=== PATIENT | male | born 1980 | race Caucasian/White ===

== ENCOUNTER 2021-11-23 16:10 | Inpatient (IN) | payer OTHER ==
[2021-11-23] MEDS ORDERED: SODIUM CHLORIDE 0.9% 500 ML INFUS.BAG IV ONE (17:06)
[2021-11-23 17:54] LABS: BASO % 0.6 % (0-2.0); EOS % 0.3 % (0-4.5); HEMATOCRIT 37.6 % (35.4-49); HEMOGLOBIN 13.3 GM/dL (11.7-16.9); LYMPH % 8.2 % (8-40); MCH 32.9 pg (25.7-33.7); MCHC 35.3 g/dl (32.0-35.9); MEAN CELL VOLUME 93.3 fl (80-96); MEAN PLT VOLUME 8.3 fl (7.5-11.1); MONO % 11.4 % (3.8-10.2); NEUT % 79.5 % (42.8-82.8); PLATELET COUNT 259 10^3/uL (134-434); RBC 4.03 M/mm3 (4.00-5.60); RDW 11.9 % (11.9-15.9); WHITE BLOOD COUNT 11.6 K/mm3 (4.0-10.0)
[2021-11-23 18:01] LABS: INR 1.05 (0.83-1.09); PROTHROMBIN TIME (PATIENT) 12.1 SEC (9.7-13.0)
[2021-11-23 18:04] LABS: ACTIVATED PTT 28.4 SECONDS (25.2-36.5)
[2021-11-23 18:16] LABS: BLOOD UREA NITROGEN 10.9 mg/dL (7-18); CALCIUM 8.8 mg/dL (8.5-10.1)
[2021-11-23 18:17] LABS: ALBUMIN 3.2 g/dl (3.4-5.0)
[2021-11-23 18:19] LABS: CREATININE 0.9 mg/dL (0.55-1.3)
[2021-11-23 18:21] LABS: BILIRUBIN,TOTAL 0.9 mg/dL (0.2-1); TOT PROT 7.6 g/dl (6.4-8.2)
[2021-11-23] MEDS ORDERED: PIPERACILLIN/TAZOB 3.375 GM 3.375 GM in DEXTROSE 5%-WATER - 50 ML IVPB ONE (19:11)
[2021-11-23] MEDS ORDERED: VANCOMYCIN 1 GM in D5W (PRE-DOCKED) 1,000 MG/250 ML IVPB ONE (19:11)
[2021-11-23] MEDS ORDERED: ACETAMINOPHEN 1000 MG/100 ML BAG IVPB ONE (19:26)
[2021-11-23] MEDS ORDERED: ACETAMINOPHEN 325 MG TABLET (FP) PO PRN (19:55)
[2021-11-23] MEDS ORDERED: SODIUM CHLORIDE 1,000 ML IV SCH (20:00)
[2021-11-23] MEDS ORDERED: VANCOMYCIN/WATER 1,250 MG/250 ML BAG IVPB SCH (20:15)
[2021-11-23] MEDS ORDERED: ACETAMINOPHEN INJECTION 100 ML IVPB ONE (20:41)
[2021-11-23] MEDS ORDERED: PIPERACILLIN/TAZOB 3.375 GM 3.375 GM/50 ML BAG IVPB ONE (22:04)
[2021-11-23] MEDS ORDERED: VANCOMYCIN 1 GM/200 ML PREMIX BAG IVPB ONE (23:30)
[2021-11-23] MEDS: INSULIN SLIDING SCALE (NOVOLOG) 1 VIAL SQ SCH (23:44)
[2021-11-24] MEDS ORDERED: SODIUM CHLORIDE 1,000 ML IV SCH ×2 (00:30→10:27)
[2021-11-24 01:42] VITALS: BMI 23.7
[2021-11-24] MEDS ORDERED: DEXTROSE 5%-WATER - 50 ML IVPB ONE ×3 (02:42→19:01)
[2021-11-24] MEDS ORDERED: PIPERACILLIN/TAZOBACTAM 3.375 GM VIAL IVPB ONE ×3 (02:42→19:01)
[2021-11-24] MEDS: PIPERACILLIN/TAZOB 3.375 GM 3.375 GM in DEXTROSE 5%-WATER - 50 ML IVPB SCH ×3 (02:46→19:04)
[2021-11-24 03:58] LABS: CALCIUM 8.4 mg/dL (8.5-10.1)
[2021-11-24 03:59] LABS: BLOOD UREA NITROGEN 10.8 mg/dL (7-18)
[2021-11-24 04:02] LABS: CREATININE 0.8 mg/dL (0.55-1.3)
[2021-11-24] MEDS ORDERED: POTASSIUM CHLORIDE TABS 20 MEQ TABLET.ER (FP) PO ONE (04:03)
[2021-11-24] MEDS: INSULIN SLIDING SCALE (NOVOLOG) 1 VIAL SQ SCH ×5 (07:00→21:36)
[2021-11-24 09:17] LABS: BASO % 0.3 % (0-2.0); EOS % 0.9 % (0-4.5); HEMATOCRIT 34.5 % (35.4-49); LYMPH % 8.2 % (8-40); MCH 32.6 pg (25.7-33.7); MCHC 34.9 g/dl (32.0-35.9); MEAN CELL VOLUME 93.2 fl (80-96); MEAN PLT VOLUME 8.4 fl (7.5-11.1); MONO % 12.1 % (3.8-10.2); NEUT % 78.5 % (42.8-82.8); PLATELET COUNT 258 10^3/uL (134-434); RDW 11.8 % (11.9-15.9); WHITE BLOOD COUNT 10.1 K/mm3 (4.0-10.0)
[2021-11-24 09:26] LABS: INR 1.06 (0.83-1.09); PROTHROMBIN TIME (PATIENT) 12.2 SEC (9.7-13.0)
[2021-11-24 09:36] LABS: ALBUMIN 2.6 g/dl (3.4-5.0); BLOOD UREA NITROGEN 10.2 mg/dL (7-18); CALCIUM 8.2 mg/dL (8.5-10.1); MAGNESIUM 2.2 mg/dL (1.8-2.4)
[2021-11-24 09:39] LABS: CREATININE 0.7 mg/dL (0.55-1.3); PHOSPHOROUS 2.2 mg/dL (2.5-4.9)
[2021-11-24 09:40] LABS: BILIRUBIN,TOTAL 0.7 mg/dL (0.2-1); TOT PROT 6.5 g/dl (6.4-8.2)
[2021-11-24] MEDS ORDERED: INSULIN SLIDING SCALE (NOVOLOG) 1 VIAL SQ SCH (09:58)
[2021-11-24] MEDS ORDERED: ENOXAPARIN NA (PORCINE) 40 MG/0.4 ML DISP.SYRIN SQ SCH (10:00)
[2021-11-24 10:07] LABS: ERYTHROCYTE SEDIMENTATION RATE 92 mm/hr (0-10)
[2021-11-24] MEDS ORDERED: INSULIN (LEVEMIR) 100 UNITS/ML UNITS SQ SCH ×2 (10:23→19:37)
[2021-11-24] MEDS ORDERED: INSULIN (NOVOLOG) ASPART 100 UNITS/ML 10ML VIAL ONE (10:58)
[2021-11-24] MEDS ORDERED: VANCOMYCIN/WATER 1,250 MG/250 ML BAG IVPB ONE (11:00)
[2021-11-24 11:15] LABS: EPI CELLS 8 /uL (0-25.1); HYALINE CASTS 2 /uL (0-3.1); URINE APPEARANCE CLEAR; URINE BACTERIA 12 /uL (0-1359); URINE BILIRUBIN NEGATIVE (NEGATIVE); URINE COLOR YELLOW; URINE GLUCOSE (UA) 3+ (NEGATIVE); URINE KETONE 4+ (NEGATIVE); URINE LEUK ESTERASE NEGATIVE (NEGATIVE); URINE NITRITE NEGATIVE (NEGATIVE); URINE PROTEIN 1+ (NEGATIVE); URINE RBC 22 /uL (0-23.9); URINE UROBILINOGEN 0.2 mg/dL (0.2-1.0); URINE WBC 53 /uL (0-25.8)
[2021-11-24] MEDS ORDERED: INSULIN (LEVEMIR) 100 UNITS/ML UNITS SQ ONE (18:31)
[2021-11-24] MEDS ORDERED: SODIUM PHOSPHATE - 15 MM in SODIUM CHLORIDE 250 ML IVPB ONE (18:33)
[2021-11-24 20:13] LABS: ARTERIAL BLD GAS O2 SATURATION 92.8 % (95-98); ARTERIAL BLOOD GAS BASE EXCESS -7.4 mmol/L (-2-2); ARTERIAL BLOOD GAS PO2 66.6 mmHg (80-100); ARTERIAL BLOOD GAS pH 7.357 (7.350-7.450)
[2021-11-24 20:14] LABS: ALLENS TEST POSITIVE
[2021-11-24] MEDS ORDERED: VANCOMYCIN/WATER 1250 MG 1,250 MG/250 ML BAG IVPB SCH (23:00)
[2021-11-25] MEDS ORDERED: PIPERACILLIN/TAZOBACTAM 3.375 GM VIAL IVPB ONE ×3 (01:43→17:21)
[2021-11-25] MEDS: PIPERACILLIN/TAZOB 3.375 GM 3.375 GM in DEXTROSE 5%-WATER - 50 ML IVPB SCH ×3 (02:50→17:35)
[2021-11-25] MEDS: INSULIN SLIDING SCALE (NOVOLOG) 1 VIAL SQ SCH ×4 (06:53→21:15)
[2021-11-25] MEDS ORDERED: LIDOCAINE HCL 1%, 10 MG/ML (20ML VIAL) ONE (07:34)
[2021-11-25] MEDS ORDERED: BUPIVACAINE HCL/PF 0.5% (5MG/ML) 10 ML VIAL ONE (07:35)
[2021-11-25] MEDS ORDERED: MIDAZOLAM HCL 2 MG/2 ML SINGLE DOSE VIAL ONE ×3 (07:50→08:20)
[2021-11-25] MEDS ORDERED: PROPOFOL 20 ML ONE ×3 (07:50→08:29)
[2021-11-25 08:06] LABS: BASO % 0.6 % (0-2.0); EOS % 1.5 % (0-4.5); HEMATOCRIT 35.4 % (35.4-49); HEMOGLOBIN 12.4 GM/dL (11.7-16.9); LYMPH % 11.7 % (8-40); MCH 32.4 pg (25.7-33.7); MEAN CELL VOLUME 92.4 fl (80-96); MEAN PLT VOLUME 8.4 fl (7.5-11.1); MONO % 11.4 % (3.8-10.2); NEUT % 74.8 % (42.8-82.8); PLATELET COUNT 286 10^3/uL (134-434); RBC 3.83 M/mm3 (4.00-5.60); RDW 12.1 % (11.9-15.9); WHITE BLOOD COUNT 8.4 K/mm3 (4.0-10.0)
[2021-11-25 08:18] LABS: ALBUMIN 2.6 g/dl (3.4-5.0); BLOOD UREA NITROGEN 6.8 mg/dL (7-18); CALCIUM 8.5 mg/dL (8.5-10.1); MAGNESIUM 2.2 mg/dL (1.8-2.4)
[2021-11-25 08:21] LABS: PHOSPHOROUS 2.8 mg/dL (2.5-4.9)
[2021-11-25 08:22] LABS: CREATININE 0.5 mg/dL (0.55-1.3)
[2021-11-25 08:23] LABS: BILIRUBIN,TOTAL 0.4 mg/dL (0.2-1); TOT PROT 6.4 g/dl (6.4-8.2)
[2021-11-25] MEDS ORDERED: BUPIVACAINE HCL/PF 0.5% (5 MG/ML) 30 ML VIAL IJ ONE (08:26)
[2021-11-25] MEDS ORDERED: LIDOCAINE HCL 1%, 10 MG/ML (20ML VIAL) NR ONE (08:26)
[2021-11-25] MEDS ORDERED: DEXAMETHASONE SOD PHOSPHATE 4 MG/1 ML VIAL ONE (08:38)
[2021-11-25] MEDS ORDERED: ONDANSETRON 4 MG/2 ML VIAL IVPUSH PRN ×2 (08:47→09:26)
[2021-11-25] MEDS ORDERED: oxyCODONE HCL 5 MG TABLET PO PRN (08:47)
[2021-11-25] MEDS ORDERED: LACTATED RINGERS SOLUTION 1,000 ML IV SCH ×2 (09:00→09:26)
[2021-11-25] MEDS ORDERED: SODIUM CHLORIDE 1,000 ML IV SCH (09:26)
[2021-11-25] MEDS ORDERED: ACETAMINOPHEN 325 MG TABLET (FP) PO PRN (09:26)
[2021-11-25] MEDS ORDERED: ENOXAPARIN NA (PORCINE) 40 MG/0.4 ML DISP.SYRIN SQ SCH (10:00)
[2021-11-25] MEDS ORDERED: DEXTROSE 5%-WATER - 50 ML IVPB ONE ×2 (10:29→17:21)
[2021-11-25] MEDS: ENOXAPARIN NA (PORCINE) 40 MG/0.4 ML DISP.SYRIN SQ SCH (10:39)
[2021-11-25] MEDS ORDERED: INSULIN SLIDING SCALE (NOVOLOG) 1 VIAL SQ SCH ×2 (11:00→16:30)
[2021-11-25] MEDS: VANCOMYCIN/WATER 1250 MG 1,250 MG/250 ML BAG IVPB SCH ×2 (11:18→22:47)
[2021-11-26] MEDS ORDERED: DEXTROSE 5%-WATER - 50 ML IVPB ONE ×3 (01:14→17:15)
[2021-11-26] MEDS ORDERED: PIPERACILLIN/TAZOBACTAM 3.375 GM VIAL IVPB ONE ×3 (01:14→17:14)
[2021-11-26] MEDS: PIPERACILLIN/TAZOB 3.375 GM 3.375 GM in DEXTROSE 5%-WATER - 50 ML IVPB SCH ×3 (01:27→17:51)
[2021-11-26] MEDS: INSULIN SLIDING SCALE (NOVOLOG) 1 VIAL SQ SCH ×5 (06:17→21:28)
[2021-11-26] MEDS ORDERED: INSULIN (LEVEMIR) 100 UNITS/ML UNITS SQ SCH ×3 (07:00→22:00)
[2021-11-26 08:53] LABS: BASO % 0.8 % (0-2.0); HEMATOCRIT 34.9 % (35.4-49); HEMOGLOBIN 12.3 GM/dL (11.7-16.9); LYMPH % 21.8 % (8-40); MCH 32.2 pg (25.7-33.7); MCHC 35.3 g/dl (32.0-35.9); MEAN CELL VOLUME 91.3 fl (80-96); MEAN PLT VOLUME 8.2 fl (7.5-11.1); MONO % 10.8 % (3.8-10.2); NEUT % 64.6 % (42.8-82.8); PLATELET COUNT 314 10^3/uL (134-434); RBC 3.82 M/mm3 (4.00-5.60); RDW 11.8 % (11.9-15.9); WHITE BLOOD COUNT 6.1 K/mm3 (4.0-10.0)
[2021-11-26] MEDS: ENOXAPARIN NA (PORCINE) 40 MG/0.4 ML DISP.SYRIN SQ SCH (09:14)
[2021-11-26 09:24] LABS: CALCIUM 8.6 mg/dL (8.5-10.1)
[2021-11-26 09:25] LABS: ALBUMIN 2.4 g/dl (3.4-5.0); BLOOD UREA NITROGEN 13.4 mg/dL (7-18); MAGNESIUM 2.2 mg/dL (1.8-2.4)
[2021-11-26 09:28] LABS: CREATININE 0.6 mg/dL (0.55-1.3); PHOSPHOROUS 2.6 mg/dL (2.5-4.9)
[2021-11-26 09:29] LABS: BILIRUBIN,TOTAL 0.2 mg/dL (0.2-1); TOT PROT 6.2 g/dl (6.4-8.2)
[2021-11-26] MEDS ORDERED: INSULIN (LEVEMIR) 100 UNITS/ML UNITS SQ ONE ×2 (10:00)
[2021-11-26] MEDS: SODIUM CHLORIDE 1,000 ML IV SCH (11:06)
[2021-11-26] MEDS: VANCOMYCIN/WATER 1250 MG 1,250 MG/250 ML BAG IVPB SCH (14:02)
[2021-11-26] MEDS ORDERED: INSULIN SLIDING SCALE (NOVOLOG) 1 VIAL SQ SCH (16:58)
[2021-11-26] MEDS ORDERED: INSULIN (NOVOLOG) ASPART 100 UNITS/ML 10ML VIAL ONE (17:03)
[2021-11-26] MEDS: VANCOMYCIN PREMIX 1.5 GM 1,500 MG/300 ML BAG IVPB SCH (21:00)
[2021-11-26] MEDS: INSULIN (LEVEMIR) 100 UNITS/ML UNITS SQ SCH (21:29)
[2021-11-27] MEDS ORDERED: DEXTROSE 5%-WATER - 50 ML IVPB ONE ×3 (01:00→16:50)
[2021-11-27] MEDS ORDERED: PIPERACILLIN/TAZOBACTAM 3.375 GM VIAL IVPB ONE ×3 (01:00→16:50)
[2021-11-27] MEDS: PIPERACILLIN/TAZOB 3.375 GM 3.375 GM in DEXTROSE 5%-WATER - 50 ML IVPB SCH ×3 (01:00→17:03)
[2021-11-27] MEDS: INSULIN (LEVEMIR) 100 UNITS/ML UNITS SQ SCH ×2 (06:23→21:29)
[2021-11-27] MEDS: INSULIN SLIDING SCALE (NOVOLOG) 1 VIAL SQ SCH ×4 (06:25→21:28)
[2021-11-27] MEDS: VANCOMYCIN PREMIX 1.5 GM 1,500 MG/300 ML BAG IVPB SCH ×2 (08:58→21:00)
[2021-11-27] MEDS: ENOXAPARIN NA (PORCINE) 40 MG/0.4 ML DISP.SYRIN SQ SCH (10:39)
[2021-11-27] MEDS: SODIUM CHLORIDE 1,000 ML IV SCH (10:44)
[2021-11-27 11:32] LABS: BASO % 0.6 % (0-2.0); EOS % 2.9 % (0-4.5); HEMATOCRIT 34.7 % (35.4-49); HEMOGLOBIN 12.4 GM/dL (11.7-16.9); LYMPH % 16.3 % (8-40); MCH 32.8 pg (25.7-33.7); MCHC 35.6 g/dl (32.0-35.9); MEAN CELL VOLUME 92.1 fl (80-96); MEAN PLT VOLUME 7.8 fl (7.5-11.1); MONO % 11.9 % (3.8-10.2); NEUT % 68.3 % (42.8-82.8); PLATELET COUNT 337 10^3/uL (134-434); RBC 3.77 M/mm3 (4.00-5.60); RDW 12.2 % (11.9-15.9); WHITE BLOOD COUNT 5.5 K/mm3 (4.0-10.0)
[2021-11-27 11:42] LABS: BLOOD UREA NITROGEN 12.3 mg/dL (7-18)
[2021-11-27 11:43] LABS: CALCIUM 8.8 mg/dL (8.5-10.1)
[2021-11-27 11:44] LABS: MAGNESIUM 2.2 mg/dL (1.8-2.4)
[2021-11-27 11:45] LABS: PHOSPHOROUS 4.5 mg/dL (2.5-4.9)
[2021-11-27 11:46] LABS: CREATININE 0.6 mg/dL (0.55-1.3)
[2021-11-27] MEDS: oxyCODONE HCL 5 MG TABLET PO PRN (14:49)
[2021-11-28] MEDS ORDERED: PIPERACILLIN/TAZOBACTAM 3.375 GM VIAL IVPB ONE ×2 (00:24→08:51)
[2021-11-28] MEDS ORDERED: DEXTROSE 5%-WATER - 50 ML IVPB ONE ×2 (00:25→08:51)
[2021-11-28] MEDS: PIPERACILLIN/TAZOB 3.375 GM 3.375 GM in DEXTROSE 5%-WATER - 50 ML IVPB SCH ×2 (01:00→10:50)
[2021-11-28] MEDS: INSULIN (LEVEMIR) 100 UNITS/ML UNITS SQ SCH ×2 (06:08→21:15)
[2021-11-28] MEDS: INSULIN SLIDING SCALE (NOVOLOG) 1 VIAL SQ SCH ×4 (06:08→21:14)
[2021-11-28 07:31] LABS: BASO % 0.5 % (0-2.0); EOS % 2.4 % (0-4.5); HEMATOCRIT 34.1 % (35.4-49); HEMOGLOBIN 11.7 GM/dL (11.7-16.9); LYMPH % 12.9 % (8-40); MCH 31.7 pg (25.7-33.7); MCHC 34.2 g/dl (32.0-35.9); MEAN CELL VOLUME 92.8 fl (80-96); MEAN PLT VOLUME 7.6 fl (7.5-11.1); MONO % 12.5 % (3.8-10.2); NEUT % 71.7 % (42.8-82.8); PLATELET COUNT 321 10^3/uL (134-434); RBC 3.68 M/mm3 (4.00-5.60); RDW 11.9 % (11.9-15.9); WHITE BLOOD COUNT 5.8 K/mm3 (4.0-10.0)
[2021-11-28 07:52] LABS: CALCIUM 8.4 mg/dL (8.5-10.1)
[2021-11-28 07:53] LABS: BLOOD UREA NITROGEN 11.4 mg/dL (7-18); MAGNESIUM 2.2 mg/dL (1.8-2.4)
[2021-11-28 07:56] LABS: CREATININE 0.6 mg/dL (0.55-1.3); PHOSPHOROUS 3.4 mg/dL (2.5-4.9)
[2021-11-28] MEDS: VANCOMYCIN PREMIX 1.5 GM 1,500 MG/300 ML BAG IVPB SCH (08:54)
[2021-11-28] MEDS: ENOXAPARIN NA (PORCINE) 40 MG/0.4 ML DISP.SYRIN SQ SCH (09:00)
[2021-11-28] MEDS: oxyCODONE HCL 5 MG TABLET PO PRN (15:31)
[2021-11-28] MEDS ORDERED: DEXTROSE 5%-WATER 100 ML IVPB ONE (17:12)
[2021-11-28] MEDS ORDERED: PIPERACILLIN/TAZOBACTAM 4.5 GM VIAL IVPB ONE (17:12)
[2021-11-28] MEDS: PIPERACILLIN/TAZOB 4.5 GM 4.5 GM in DEXTROSE 5%-WATER 100 ML IVPB SCH (17:13)
[2021-11-28] MEDS ORDERED: INSULIN (NOVOLOG) ASPART 100 UNITS/ML 10ML VIAL ONE (21:03)
[2021-11-28] MEDS: VANCOMYCIN 2,000 MG in DEXTROSE 5%-WATER - 500 ML IVPB SCH (21:22)
[2021-11-29] MEDS ORDERED: DEXTROSE 5%-WATER 100 ML IVPB ONE ×3 (01:00→16:40)
[2021-11-29] MEDS ORDERED: PIPERACILLIN/TAZOBACTAM 4.5 GM VIAL IVPB ONE ×3 (01:00→16:40)
[2021-11-29] MEDS: PIPERACILLIN/TAZOB 4.5 GM 4.5 GM in DEXTROSE 5%-WATER 100 ML IVPB SCH ×3 (01:07→17:04)
[2021-11-29] MEDS: INSULIN SLIDING SCALE (NOVOLOG) 1 VIAL SQ SCH ×4 (06:00→21:30)
[2021-11-29] MEDS: INSULIN (LEVEMIR) 100 UNITS/ML UNITS SQ SCH ×2 (06:01→21:30)
[2021-11-29 09:03] LABS: BASO % 0.6 % (0-2.0); EOS % 3.3 % (0-4.5); HEMATOCRIT 35.3 % (35.4-49); HEMOGLOBIN 12.1 GM/dL (11.7-16.9); LYMPH % 17.1 % (8-40); MCH 32.2 pg (25.7-33.7); MCHC 34.3 g/dl (32.0-35.9); MEAN CELL VOLUME 93.8 fl (80-96); MEAN PLT VOLUME 7.9 fl (7.5-11.1); MONO % 18.6 % (3.8-10.2); NEUT % 60.4 % (42.8-82.8); PLATELET COUNT 328 10^3/uL (134-434); RBC 3.76 M/mm3 (4.00-5.60); WHITE BLOOD COUNT 6.6 K/mm3 (4.0-10.0)
[2021-11-29] MEDS: ENOXAPARIN NA (PORCINE) 40 MG/0.4 ML DISP.SYRIN SQ SCH (09:13)
[2021-11-29] MEDS: VANCOMYCIN 2,000 MG in DEXTROSE 5%-WATER - 500 ML IVPB SCH ×2 (09:13→20:20)
[2021-11-29 09:53] LABS: BILIRUBIN,TOTAL 0.2 mg/dL (0.2-1); TOT PROT 6.4 g/dl (6.4-8.2)
[2021-11-29 10:05] LABS: ALBUMIN 2.4 g/dl (3.4-5.0); CALCIUM 8.4 mg/dL (8.5-10.1); MAGNESIUM 2.1 mg/dL (1.8-2.4); PHOSPHOROUS 3.1 mg/dL (2.5-4.9)
[2021-11-29 10:08] LABS: CREATININE 0.7 mg/dL (0.55-1.3)
[2021-11-30] MEDS ORDERED: PIPERACILLIN/TAZOBACTAM 4.5 GM VIAL IVPB ONE ×3 (01:11→18:06)
[2021-11-30] MEDS ORDERED: DEXTROSE 5%-WATER 100 ML IVPB ONE ×3 (01:11→18:06)
[2021-11-30] MEDS: PIPERACILLIN/TAZOB 4.5 GM 4.5 GM in DEXTROSE 5%-WATER 100 ML IVPB SCH ×3 (01:18→18:16)
[2021-11-30] MEDS: INSULIN (LEVEMIR) 100 UNITS/ML UNITS SQ SCH ×2 (06:05→21:29)
[2021-11-30] MEDS: INSULIN SLIDING SCALE (NOVOLOG) 1 VIAL SQ SCH ×4 (06:06→21:29)
[2021-11-30] MEDS: VANCOMYCIN 2,000 MG in DEXTROSE 5%-WATER - 500 ML IVPB SCH ×2 (08:41→21:08)
[2021-11-30] MEDS: ENOXAPARIN NA (PORCINE) 40 MG/0.4 ML DISP.SYRIN SQ SCH (09:04)
[2021-11-30 09:12] LABS: BASO % 0.7 % (0-2.0); EOS % 2.6 % (0-4.5); HEMATOCRIT 34.2 % (35.4-49); HEMOGLOBIN 12.1 GM/dL (11.7-16.9); MCH 32.9 pg (25.7-33.7); MCHC 35.4 g/dl (32.0-35.9); MEAN CELL VOLUME 92.9 fl (80-96); MEAN PLT VOLUME 7.6 fl (7.5-11.1); MONO % 12.8 % (3.8-10.2); NEUT % 72.9 % (42.8-82.8); PLATELET COUNT 328 10^3/uL (134-434); RBC 3.69 M/mm3 (4.00-5.60); RDW 11.9 % (11.9-15.9); WHITE BLOOD COUNT 5.6 K/mm3 (4.0-10.0)
[2021-11-30 09:32] LABS: CALCIUM 8.5 mg/dL (8.5-10.1)
[2021-11-30 09:33] LABS: BLOOD UREA NITROGEN 14.1 mg/dL (7-18); MAGNESIUM 2.2 mg/dL (1.8-2.4)
[2021-11-30 09:36] LABS: CREATININE 0.6 mg/dL (0.55-1.3); PHOSPHOROUS 3.1 mg/dL (2.5-4.9)
[2021-11-30] MEDS: oxyCODONE HCL 5 MG TABLET PO PRN (18:17)
[2021-11-30] MEDS ORDERED: INSULIN (NOVOLOG) ASPART 100 UNITS/ML 10ML VIAL ONE (20:56)
[2021-12-01] MEDS ORDERED: PIPERACILLIN/TAZOBACTAM 4.5 GM VIAL IVPB ONE ×3 (01:51→17:27)
[2021-12-01] MEDS ORDERED: DEXTROSE 5%-WATER 100 ML IVPB ONE ×3 (01:51→17:27)
[2021-12-01] MEDS: PIPERACILLIN/TAZOB 4.5 GM 4.5 GM in DEXTROSE 5%-WATER 100 ML IVPB SCH ×3 (02:15→17:33)
[2021-12-01] MEDS: INSULIN (LEVEMIR) 100 UNITS/ML UNITS SQ SCH ×2 (06:58→22:02)
[2021-12-01] MEDS: INSULIN SLIDING SCALE (NOVOLOG) 1 VIAL SQ SCH ×5 (06:58→22:01)
[2021-12-01 08:55] LABS: BASO % 0.6 % (0-2.0); EOS % 3.4 % (0-4.5); HEMATOCRIT 33.4 % (35.4-49); HEMOGLOBIN 11.4 GM/dL (11.7-16.9); LYMPH % 21.4 % (8-40); MCH 31.8 pg (25.7-33.7); MCHC 34.1 g/dl (32.0-35.9); MEAN CELL VOLUME 93.1 fl (80-96); MONO % 17.8 % (3.8-10.2); NEUT % 56.8 % (42.8-82.8); PLATELET COUNT 336 10^3/uL (134-434); RBC 3.58 M/mm3 (4.00-5.60); RDW 11.8 % (11.9-15.9); WHITE BLOOD COUNT 4.3 K/mm3 (4.0-10.0)
[2021-12-01] MEDS: VANCOMYCIN 2,000 MG in DEXTROSE 5%-WATER - 500 ML IVPB SCH (08:57)
[2021-12-01 09:05] LABS: CALCIUM 8.4 mg/dL (8.5-10.1)
[2021-12-01 09:06] LABS: BLOOD UREA NITROGEN 12.3 mg/dL (7-18)
[2021-12-01 09:09] LABS: CREATININE 0.7 mg/dL (0.55-1.3)
[2021-12-01] MEDS: ENOXAPARIN NA (PORCINE) 40 MG/0.4 ML DISP.SYRIN SQ SCH (11:55)
[2021-12-01] MEDS ORDERED: INSULIN (NOVOLOG) ASPART 100 UNITS/ML 10ML VIAL ONE (16:19)
[2021-12-02] MEDS ORDERED: PIPERACILLIN/TAZOBACTAM 4.5 GM VIAL IVPB ONE ×3 (01:45→17:43)
[2021-12-02] MEDS: PIPERACILLIN/TAZOB 4.5 GM 4.5 GM in DEXTROSE 5%-WATER 100 ML IVPB SCH ×3 (02:10→17:50)
[2021-12-02] MEDS: INSULIN (LEVEMIR) 100 UNITS/ML UNITS SQ SCH ×2 (06:39→21:37)
[2021-12-02] MEDS: INSULIN SLIDING SCALE (NOVOLOG) 1 VIAL SQ SCH ×4 (07:00→21:42)
[2021-12-02] MEDS ORDERED: PROPOFOL 20 ML ONE ×3 (07:15→07:50)
[2021-12-02] MEDS ORDERED: SUCCINYLCHOLINE CHLORIDE 200 MG/10 ML SYRINGE ONE (07:15)
[2021-12-02] MEDS ORDERED: BUPIVACAINE HCL/PF 0.5% (5MG/ML) 10 ML VIAL ONE (07:25)
[2021-12-02] MEDS ORDERED: LIDOCAINE HCL 1%, 10 MG/ML (20ML VIAL) ONE (07:25)
[2021-12-02] MEDS ORDERED: MIDAZOLAM HCL 2 MG/2 ML SINGLE DOSE VIAL ONE ×2 (07:27)
[2021-12-02] MEDS ORDERED: LIDOCAINE HCL 1%, 10 MG/ML (20ML VIAL) NR ONE (07:53)
[2021-12-02] MEDS ORDERED: BUPIVACAINE HCL/PF 0.5% (5MG/ML) 10 ML VIAL IJ ONE (07:53)
[2021-12-02] MEDS ORDERED: ONDANSETRON 4 MG/2 ML VIAL IVPUSH PRN ×2 (08:48→08:56)
[2021-12-02] MEDS ORDERED: LACTATED RINGERS SOLUTION 1,000 ML IV SCH (09:00)
[2021-12-02] MEDS ORDERED: DEXTROSE 5%-WATER 100 ML IVPB ONE ×2 (09:53→17:43)
[2021-12-02 12:11] LABS: BASO % 0.5 % (0-2.0); EOS % 2.8 % (0-4.5); HEMATOCRIT 32.1 % (35.4-49); HEMOGLOBIN 11.1 GM/dL (11.7-16.9); LYMPH % 24.5 % (8-40); MCHC 34.6 g/dl (32.0-35.9); MEAN CELL VOLUME 92.4 fl (80-96); MEAN PLT VOLUME 7.7 fl (7.5-11.1); MONO % 13.3 % (3.8-10.2); NEUT % 58.9 % (42.8-82.8); PLATELET COUNT 330 10^3/uL (134-434); RBC 3.48 M/mm3 (4.00-5.60); RDW 11.7 % (11.9-15.9); WHITE BLOOD COUNT 4.2 K/mm3 (4.0-10.0)
[2021-12-02 12:34] LABS: BLOOD UREA NITROGEN 10.1 mg/dL (7-18); CALCIUM 8.6 mg/dL (8.5-10.1)
[2021-12-02 12:40] LABS: CREATININE 0.6 mg/dL (0.55-1.3)
[2021-12-02] MEDS: oxyCODONE HCL 5 MG TABLET PO PRN ×2 (13:38→17:53)
[2021-12-02] MEDS ORDERED: INSULIN (NOVOLOG) ASPART 100 UNITS/ML 10ML VIAL ONE (21:34)
[2021-12-03] MEDS: oxyCODONE HCL 5 MG TABLET PO PRN ×2 (01:02→09:51)
[2021-12-03] MEDS ORDERED: DEXTROSE 5%-WATER 100 ML IVPB ONE ×3 (01:26→17:35)
[2021-12-03] MEDS ORDERED: PIPERACILLIN/TAZOBACTAM 4.5 GM VIAL IVPB ONE ×3 (01:26→17:35)
[2021-12-03] MEDS: PIPERACILLIN/TAZOB 4.5 GM 4.5 GM in DEXTROSE 5%-WATER 100 ML IVPB SCH ×3 (01:32→17:37)
[2021-12-03] MEDS: INSULIN (LEVEMIR) 100 UNITS/ML UNITS SQ SCH ×2 (07:00→21:33)
[2021-12-03] MEDS: INSULIN SLIDING SCALE (NOVOLOG) 1 VIAL SQ SCH ×3 (07:01→16:50)
[2021-12-03 08:30] LABS: CALCIUM 8.6 mg/dL (8.5-10.1)
[2021-12-03 08:31] LABS: BLOOD UREA NITROGEN 11.2 mg/dL (7-18)
[2021-12-03 08:34] LABS: CREATININE 0.7 mg/dL (0.55-1.3)
[2021-12-03] MEDS ORDERED: ACETAMINOPHEN 500 MG TABLET (FP) PO PRN (09:23)
[2021-12-03] MEDS: ENOXAPARIN NA (PORCINE) 40 MG/0.4 ML DISP.SYRIN SQ SCH (09:51)
[2021-12-03] MEDS ORDERED: ENOXAPARIN NA (PORCINE) 40 MG/0.4 ML DISP.SYRIN SQ SCH (10:00)
[2021-12-03] MEDS ORDERED: oxyCODONE HCL 5 MG TABLET PO ONE (22:00)
[2021-12-04] MEDS ORDERED: PIPERACILLIN/TAZOBACTAM 4.5 GM VIAL IVPB ONE ×3 (01:05→17:24)
[2021-12-04] MEDS ORDERED: DEXTROSE 5%-WATER 100 ML IVPB ONE ×3 (01:05→17:24)
[2021-12-04] MEDS: PIPERACILLIN/TAZOB 4.5 GM 4.5 GM in DEXTROSE 5%-WATER 100 ML IVPB SCH ×3 (01:18→17:35)
[2021-12-04] MEDS: INSULIN (LEVEMIR) 100 UNITS/ML UNITS SQ SCH ×2 (06:41→21:33)
[2021-12-04] MEDS: INSULIN SLIDING SCALE (NOVOLOG) 1 VIAL SQ SCH ×3 (06:42→16:24)
[2021-12-04 07:38] LABS: BASO % 0.8 % (0-2.0); EOS % 2.8 % (0-4.5); HEMOGLOBIN 11.1 GM/dL (11.7-16.9); LYMPH % 20.5 % (8-40); MCH 31.7 pg (25.7-33.7); MCHC 34.6 g/dl (32.0-35.9); MEAN CELL VOLUME 91.6 fl (80-96); NEUT % 63.9 % (42.8-82.8); PLATELET COUNT 342 10^3/uL (134-434); RBC 3.49 M/mm3 (4.00-5.60); RDW 12.1 % (11.9-15.9); WHITE BLOOD COUNT 5.6 K/mm3 (4.0-10.0)
[2021-12-04 07:53] LABS: BLOOD UREA NITROGEN 13.2 mg/dL (7-18)
[2021-12-04 07:56] LABS: CREATININE 0.6 mg/dL (0.55-1.3)
[2021-12-04 07:57] LABS: PHOSPHOROUS 3.8 mg/dL (2.5-4.9)
[2021-12-04] MEDS: ENOXAPARIN NA (PORCINE) 40 MG/0.4 ML DISP.SYRIN SQ SCH (09:24)
[2021-12-04] MEDS ORDERED: INSULIN (NOVOLOG) ASPART 100 UNITS/ML 10ML VIAL ONE (11:14)
[2021-12-05] MEDS ORDERED: DEXTROSE 5%-WATER 100 ML IVPB ONE ×3 (00:06→12:30)
[2021-12-05] MEDS ORDERED: PIPERACILLIN/TAZOBACTAM 4.5 GM VIAL IVPB ONE ×2 (00:06→09:00)
[2021-12-05] MEDS: PIPERACILLIN/TAZOB 4.5 GM 4.5 GM in DEXTROSE 5%-WATER 100 ML IVPB SCH ×2 (01:13→09:13)
[2021-12-05] MEDS: INSULIN (LEVEMIR) 100 UNITS/ML UNITS SQ SCH ×2 (06:17→21:33)
[2021-12-05] MEDS: INSULIN SLIDING SCALE (NOVOLOG) 1 VIAL SQ SCH ×4 (06:18→17:11)
[2021-12-05 08:55] LABS: BASO % 1.1 % (0-2.0); EOS % 2.9 % (0-4.5); HEMATOCRIT 34.9 % (35.4-49); HEMOGLOBIN 12.1 GM/dL (11.7-16.9); MCH 31.6 pg (25.7-33.7); MCHC 34.5 g/dl (32.0-35.9); MEAN CELL VOLUME 91.6 fl (80-96); MONO % 8.4 % (3.8-10.2); NEUT % 62.6 % (42.8-82.8); PLATELET COUNT 380 10^3/uL (134-434); RBC 3.81 M/mm3 (4.00-5.60); WHITE BLOOD COUNT 5.2 K/mm3 (4.0-10.0)
[2021-12-05] MEDS: ENOXAPARIN NA (PORCINE) 40 MG/0.4 ML DISP.SYRIN SQ SCH (09:13)
[2021-12-05 09:15] LABS: CHLORIDE 104 mmol/L (98-107); SODIUM 139 mmol/L (136-145)
[2021-12-05 09:23] LABS: ANION GAP 6 MMOL/L (8-16); BLOOD UREA NITROGEN 13.9 mg/dL (7-18); CALCIUM 9.6 mg/dL (8.5-10.1); CO2 29 mmol/L (21-32)
[2021-12-05 09:26] LABS: CREATININE 0.7 mg/dL (0.55-1.3); GLUCOSE,RANDOM 28 mg/dL (74-106)
[2021-12-05] MEDS: CEFTRIAXONE 2 GM in DEXTROSE 5%-WATER 2 GM/100 ML BAG IVPB SCH (12:33)
[2021-12-05 19:06] LABS: SARS-CoV-2 NAA Not Detected (Not Detected)
[2021-12-06] MEDS ORDERED: INSULIN (NOVOLOG) ASPART 100 UNITS/ML 10ML VIAL ONE ×2 (06:07→11:38)
[2021-12-06] MEDS: INSULIN (LEVEMIR) 100 UNITS/ML UNITS SQ SCH ×2 (06:08→21:27)
[2021-12-06] MEDS: INSULIN SLIDING SCALE (NOVOLOG) 1 VIAL SQ SCH ×3 (06:10→16:36)
[2021-12-06] MEDS ORDERED: DEXTROSE 5%-WATER 100 ML IVPB ONE (09:00)
[2021-12-06] MEDS: CEFTRIAXONE 2 GM in DEXTROSE 5%-WATER 2 GM/100 ML BAG IVPB SCH (09:05)
[2021-12-06] MEDS: ENOXAPARIN NA (PORCINE) 40 MG/0.4 ML DISP.SYRIN SQ SCH (09:05)
[2021-12-06 09:14] LABS: BASO % 1.2 % (0-2.0); EOS % 3.2 % (0-4.5); HEMATOCRIT 31.8 % (35.4-49); HEMOGLOBIN 10.9 GM/dL (11.7-16.9); LYMPH % 27.9 % (8-40); MCH 31.4 pg (25.7-33.7); MCHC 34.3 g/dl (32.0-35.9); MEAN CELL VOLUME 91.6 fl (80-96); MEAN PLT VOLUME 7.9 fl (7.5-11.1); MONO % 7.1 % (3.8-10.2); NEUT % 60.6 % (42.8-82.8); PLATELET COUNT 409 10^3/uL (134-434); RBC 3.47 M/mm3 (4.00-5.60); RDW 11.8 % (11.9-15.9); WHITE BLOOD COUNT 5.6 K/mm3 (4.0-10.0)
[2021-12-06 09:17] LABS: BLOOD UREA NITROGEN 15.4 mg/dL (7-18); CALCIUM 9.4 mg/dL (8.5-10.1)
[2021-12-06 09:21] LABS: CREATININE 0.6 mg/dL (0.55-1.3)
[2021-12-07] MEDS: INSULIN (LEVEMIR) 100 UNITS/ML UNITS SQ SCH ×2 (06:17→21:16)
[2021-12-07] MEDS: INSULIN SLIDING SCALE (NOVOLOG) 1 VIAL SQ SCH ×3 (06:18→16:27)
[2021-12-07] MEDS ORDERED: DEXTROSE 5%-WATER 100 ML IVPB ONE (09:09)
[2021-12-07] MEDS: ENOXAPARIN NA (PORCINE) 40 MG/0.4 ML DISP.SYRIN SQ SCH (09:26)
[2021-12-07] MEDS: CEFTRIAXONE 2 GM in DEXTROSE 5%-WATER 2 GM/100 ML BAG IVPB SCH (09:26)
[2021-12-07 11:10] LABS: BLOOD UREA NITROGEN 15.6 mg/dL (7-18); CALCIUM 9.3 mg/dL (8.5-10.1)
[2021-12-07 11:13] LABS: CREATININE 0.6 mg/dL (0.55-1.3)
[2021-12-07] MEDS ORDERED: INSULIN (NOVOLOG) ASPART 100 UNITS/ML 10ML VIAL ONE (11:15)
[2021-12-07 11:43] LABS: BASO % 1.1 % (0-2.0); EOS % 2.6 % (0-4.5); HEMATOCRIT 33.4 % (35.4-49); HEMOGLOBIN 11.4 GM/dL (11.7-16.9); LYMPH % 23.6 % (8-40); MCH 31.4 pg (25.7-33.7); MCHC 34.2 g/dl (32.0-35.9); MEAN CELL VOLUME 91.8 fl (80-96); MONO % 6.1 % (3.8-10.2); NEUT % 66.6 % (42.8-82.8); PLATELET COUNT 373 10^3/uL (134-434); RBC 3.63 M/mm3 (4.00-5.60); RDW 11.7 % (11.9-15.9); WHITE BLOOD COUNT 5.2 K/mm3 (4.0-10.0)
[2021-12-08] MEDS: INSULIN SLIDING SCALE (NOVOLOG) 1 VIAL SQ SCH ×3 (06:00→17:00)
[2021-12-08] MEDS: INSULIN (LEVEMIR) 100 UNITS/ML UNITS SQ SCH (06:01)
[2021-12-08 09:07] LABS: EOS % 2.2 % (0-4.5); HEMATOCRIT 36.3 % (35.4-49); HEMOGLOBIN 12.6 GM/dL (11.7-16.9); LYMPH % 36.4 % (8-40); MCH 31.7 pg (25.7-33.7); MCHC 34.7 g/dl (32.0-35.9); MEAN CELL VOLUME 91.4 fl (80-96); MEAN PLT VOLUME 7.5 fl (7.5-11.1); MONO % 7.6 % (3.8-10.2); NEUT % 52.8 % (42.8-82.8); PLATELET COUNT 388 10^3/uL (134-434); RBC 3.97 M/mm3 (4.00-5.60); RDW 12.4 % (11.9-15.9); WHITE BLOOD COUNT 5.8 K/mm3 (4.0-10.0)
[2021-12-08 09:29] LABS: CHLORIDE 107 mmol/L (98-107); SODIUM 143 mmol/L (136-145)
[2021-12-08 09:32] LABS: BLOOD UREA NITROGEN 15.7 mg/dL (7-18); CALCIUM 9.4 mg/dL (8.5-10.1)
[2021-12-08 09:35] LABS: ANION GAP 8 MMOL/L (8-16); CO2 28 mmol/L (21-32); CREATININE 0.6 mg/dL (0.55-1.3)
[2021-12-08 09:37] LABS: GLUCOSE,RANDOM 32 mg/dL (74-106)
[2021-12-08] MEDS ORDERED: DEXTROSE 5%-WATER 100 ML IVPB ONE (10:42)
[2021-12-08] MEDS: CEFTRIAXONE 2 GM in DEXTROSE 5%-WATER 2 GM/100 ML BAG IVPB SCH (10:50)
[2021-12-08] MEDS: ENOXAPARIN NA (PORCINE) 40 MG/0.4 ML DISP.SYRIN SQ SCH (10:50)
[2021-12-08] MEDS: oxyCODONE HCL 5 MG TABLET PO PRN (17:22)
[2021-12-09] MEDS: INSULIN SLIDING SCALE (NOVOLOG) 1 VIAL SQ SCH ×3 (06:41→17:04)
[2021-12-09] MEDS: INSULIN (LEVEMIR) 100 UNITS/ML UNITS SQ SCH (06:43)
[2021-12-09 09:12] LABS: BASO % 1.8 % (0-2.0); EOS % 3.7 % (0-4.5); HEMATOCRIT 34.2 % (35.4-49); HEMOGLOBIN 11.9 GM/dL (11.7-16.9); LYMPH % 26.7 % (8-40); MCH 31.6 pg (25.7-33.7); MCHC 34.7 g/dl (32.0-35.9); MEAN CELL VOLUME 91.1 fl (80-96); MEAN PLT VOLUME 7.5 fl (7.5-11.1); MONO % 7.5 % (3.8-10.2); NEUT % 60.3 % (42.8-82.8); PLATELET COUNT 357 10^3/uL (134-434); RBC 3.76 M/mm3 (4.00-5.60); RDW 12.2 % (11.9-15.9); WHITE BLOOD COUNT 5.1 K/mm3 (4.0-10.0)
[2021-12-09] MEDS: ENOXAPARIN NA (PORCINE) 40 MG/0.4 ML DISP.SYRIN SQ SCH (09:59)
[2021-12-09] MEDS: CEFTRIAXONE 2 GM in DEXTROSE 5%-WATER 2 GM/100 ML BAG IVPB SCH (10:00)
[2021-12-09 10:38] LABS: CALCIUM 9.1 mg/dL (8.5-10.1)
[2021-12-09 10:39] LABS: BLOOD UREA NITROGEN 14.9 mg/dL (7-18)
[2021-12-09 10:42] LABS: CREATININE 0.7 mg/dL (0.55-1.3); PHOSPHOROUS 3.2 mg/dL (2.5-4.9)
[2021-12-09] MEDS ORDERED: INSULIN (NOVOLOG) ASPART 100 UNITS/ML 10ML VIAL ONE (11:26)
[2021-12-10] MEDS ORDERED: INSULIN (NOVOLOG) ASPART 100 UNITS/ML 10ML VIAL ONE ×2 (05:28→17:02)
[2021-12-10] MEDS: INSULIN SLIDING SCALE (NOVOLOG) 1 VIAL SQ SCH ×3 (06:56→17:04)
[2021-12-10] MEDS: INSULIN (LEVEMIR) 100 UNITS/ML UNITS SQ SCH (06:58)
[2021-12-10] MEDS ORDERED: DEXTROSE 5%-WATER 100 ML IVPB ONE (08:55)
[2021-12-10] MEDS: ENOXAPARIN NA (PORCINE) 40 MG/0.4 ML DISP.SYRIN SQ SCH (09:03)
[2021-12-10] MEDS: CEFTRIAXONE 2 GM in DEXTROSE 5%-WATER 2 GM/100 ML BAG IVPB SCH (09:03)
[2021-12-10 10:22] LABS: BASO % 1.2 % (0-2.0); LYMPH % 24.2 % (8-40); MCH 31.4 pg (25.7-33.7); MCHC 34.3 g/dl (32.0-35.9); MEAN CELL VOLUME 91.6 fl (80-96); MONO % 7.7 % (3.8-10.2); NEUT % 62.9 % (42.8-82.8); PLATELET COUNT 352 10^3/uL (134-434); RBC 3.82 M/mm3 (4.00-5.60); RDW 12.1 % (11.9-15.9); WHITE BLOOD COUNT 4.7 K/mm3 (4.0-10.0)
[2021-12-10 10:44] LABS: CALCIUM 9.1 mg/dL (8.5-10.1)
[2021-12-10 10:45] LABS: BLOOD UREA NITROGEN 14.9 mg/dL (7-18)
[2021-12-10 10:48] LABS: CREATININE 0.6 mg/dL (0.55-1.3)
[2021-12-11] MEDS: INSULIN (LEVEMIR) 100 UNITS/ML UNITS SQ SCH (06:52)
[2021-12-11] MEDS: INSULIN SLIDING SCALE (NOVOLOG) 1 VIAL SQ SCH ×3 (06:54→17:17)
[2021-12-11 09:03] LABS: BASO % 1.6 % (0-2.0); EOS % 4.2 % (0-4.5); HEMATOCRIT 36.5 % (35.4-49); HEMOGLOBIN 12.8 GM/dL (11.7-16.9); LYMPH % 20.6 % (8-40); MCH 32.1 pg (25.7-33.7); MEAN CELL VOLUME 91.7 fl (80-96); MEAN PLT VOLUME 7.8 fl (7.5-11.1); MONO % 7.9 % (3.8-10.2); NEUT % 65.7 % (42.8-82.8); PLATELET COUNT 352 10^3/uL (134-434); RBC 3.98 M/mm3 (4.00-5.60); RDW 12.3 % (11.9-15.9); WHITE BLOOD COUNT 4.4 K/mm3 (4.0-10.0)
[2021-12-11] MEDS ORDERED: DEXTROSE 5%-WATER 100 ML IVPB ONE (09:03)
[2021-12-11] MEDS: CEFTRIAXONE 2 GM in DEXTROSE 5%-WATER 2 GM/100 ML BAG IVPB SCH (09:10)
[2021-12-11] MEDS: ENOXAPARIN NA (PORCINE) 40 MG/0.4 ML DISP.SYRIN SQ SCH (09:11)
[2021-12-11 09:39] LABS: BLOOD UREA NITROGEN 19.2 mg/dL (7-18); CALCIUM 9.3 mg/dL (8.5-10.1)
[2021-12-11 09:43] LABS: CREATININE 0.7 mg/dL (0.55-1.3)
[2021-12-11] MEDS ORDERED: INSULIN (NOVOLOG) ASPART 100 UNITS/ML 10ML VIAL ONE (11:14)
[2021-12-11] MEDS: oxyCODONE HCL 5 MG TABLET PO PRN (17:18)
[2021-12-12 00:07] LABS: SARS-CoV-2 NAA Not Detected (Not Detected)
[2021-12-12] MEDS ORDERED: INSULIN (NOVOLOG) ASPART 100 UNITS/ML 10ML VIAL ONE (06:00)
[2021-12-12] MEDS: INSULIN (LEVEMIR) 100 UNITS/ML UNITS SQ SCH (07:03)
[2021-12-12] MEDS: INSULIN SLIDING SCALE (NOVOLOG) 1 VIAL SQ SCH ×3 (07:03→16:55)
[2021-12-12] MEDS ORDERED: DEXTROSE 5%-WATER 100 ML IVPB ONE (09:26)
[2021-12-12] MEDS: CEFTRIAXONE 2 GM in DEXTROSE 5%-WATER 2 GM/100 ML BAG IVPB SCH (09:38)
[2021-12-12] MEDS: ENOXAPARIN NA (PORCINE) 40 MG/0.4 ML DISP.SYRIN SQ SCH (09:38)
[2021-12-12 09:59] LABS: BASO % 1.4 % (0-2.0); EOS % 4.4 % (0-4.5); HEMATOCRIT 38.9 % (35.4-49); HEMOGLOBIN 13.4 GM/dL (11.7-16.9); LYMPH % 25.6 % (8-40); MCH 31.4 pg (25.7-33.7); MCHC 34.4 g/dl (32.0-35.9); MEAN CELL VOLUME 91.3 fl (80-96); MEAN PLT VOLUME 7.6 fl (7.5-11.1); MONO % 8.9 % (3.8-10.2); NEUT % 59.7 % (42.8-82.8); PLATELET COUNT 316 10^3/uL (134-434); RBC 4.26 M/mm3 (4.00-5.60); RDW 12.4 % (11.9-15.9); WHITE BLOOD COUNT 3.8 K/mm3 (4.0-10.0)
[2021-12-12 10:59] LABS: CALCIUM 9.6 mg/dL (8.5-10.1)
[2021-12-12 11:00] LABS: BLOOD UREA NITROGEN 18.2 mg/dL (7-18)
[2021-12-12 11:02] LABS: CREATININE 0.7 mg/dL (0.55-1.3)
[2021-12-13] MEDS: INSULIN (LEVEMIR) 100 UNITS/ML UNITS SQ SCH (06:40)
[2021-12-13] MEDS: INSULIN SLIDING SCALE (NOVOLOG) 1 VIAL SQ SCH ×3 (06:41→17:04)
[2021-12-13] MEDS ORDERED: INSULIN (NOVOLOG) ASPART 100 UNITS/ML 10ML VIAL ONE (06:52)
[2021-12-13] MEDS ORDERED: DOCUSATE SODIUM 100 MG CAPSULE (FP) PO PRN (08:37)
[2021-12-13] MEDS ORDERED: SENNOSIDES 8.6MG TABLET (FP) PO PRN (08:37)
[2021-12-13 10:31] LABS: BASO % 1.2 % (0-2.0); EOS % 5.1 % (0-4.5); HEMATOCRIT 36.4 % (35.4-49); HEMOGLOBIN 12.8 GM/dL (11.7-16.9); LYMPH % 26.8 % (8-40); MCH 31.9 pg (25.7-33.7); MEAN CELL VOLUME 91.1 fl (80-96); MEAN PLT VOLUME 7.7 fl (7.5-11.1); MONO % 11.2 % (3.8-10.2); NEUT % 55.7 % (42.8-82.8); PLATELET COUNT 294 10^3/uL (134-434); RDW 12.5 % (11.9-15.9); WHITE BLOOD COUNT 3.9 K/mm3 (4.0-10.0)
[2021-12-13] MEDS ORDERED: DEXTROSE 5%-WATER 100 ML IVPB ONE (10:40)
[2021-12-13 10:52] LABS: CALCIUM 9.3 mg/dL (8.5-10.1)
[2021-12-13 10:53] LABS: BLOOD UREA NITROGEN 16.8 mg/dL (7-18)
[2021-12-13] MEDS: ENOXAPARIN NA (PORCINE) 40 MG/0.4 ML DISP.SYRIN SQ SCH (10:55)
[2021-12-13] MEDS: CEFTRIAXONE 2 GM in DEXTROSE 5%-WATER 2 GM/100 ML BAG IVPB SCH (10:55)
[2021-12-13] MEDS: POLYETHYLENE GLYCOL (HEALTHYLAX) 3350 17 GM PACKET PO SCH ×2 (10:55→21:06)
[2021-12-13 10:56] LABS: CREATININE 0.6 mg/dL (0.55-1.3)
[2021-12-14] MEDS: INSULIN (LEVEMIR) 100 UNITS/ML UNITS SQ SCH (06:52)
[2021-12-14] MEDS: INSULIN SLIDING SCALE (NOVOLOG) 1 VIAL SQ SCH ×3 (06:52→17:22)
[2021-12-14 08:58] LABS: BASO % 1.4 % (0-2.0); EOS % 5.4 % (0-4.5); HEMATOCRIT 37.6 % (35.4-49); LYMPH % 31.3 % (8-40); MCH 31.7 pg (25.7-33.7); MCHC 34.6 g/dl (32.0-35.9); MEAN CELL VOLUME 91.6 fl (80-96); MEAN PLT VOLUME 8.2 fl (7.5-11.1); MONO % 10.1 % (3.8-10.2); NEUT % 51.8 % (42.8-82.8); PLATELET COUNT 275 10^3/uL (134-434); RBC 4.11 M/mm3 (4.00-5.60); RDW 12.4 % (11.9-15.9); WHITE BLOOD COUNT 3.6 K/mm3 (4.0-10.0)
[2021-12-14] MEDS ORDERED: DEXTROSE 5%-WATER 100 ML IVPB ONE (09:22)
[2021-12-14] MEDS: CEFTRIAXONE 2 GM in DEXTROSE 5%-WATER 2 GM/100 ML BAG IVPB SCH (09:23)
[2021-12-14] MEDS: ENOXAPARIN NA (PORCINE) 40 MG/0.4 ML DISP.SYRIN SQ SCH (09:23)
[2021-12-14] MEDS: POLYETHYLENE GLYCOL (HEALTHYLAX) 3350 17 GM PACKET PO SCH ×2 (09:34→21:34)
[2021-12-14 09:42] LABS: BLOOD UREA NITROGEN 16.9 mg/dL (7-18); CALCIUM 9.4 mg/dL (8.5-10.1)
[2021-12-14 10:00] LABS: CREATININE 0.7 mg/dL (0.55-1.3)
[2021-12-14] MEDS ORDERED: oxyCODONE HCL 5 MG TABLET PO ONE (20:57)
[2021-12-15] MEDS ORDERED: INSULIN (NOVOLOG) ASPART 100 UNITS/ML 10ML VIAL ONE ×2 (06:05→06:49)
[2021-12-15] MEDS: INSULIN (LEVEMIR) 100 UNITS/ML UNITS SQ SCH (06:46)
[2021-12-15] MEDS: INSULIN SLIDING SCALE (NOVOLOG) 1 VIAL SQ SCH ×3 (06:46→16:58)
[2021-12-15] MEDS ORDERED: INSULIN (LEVEMIR) 100 UNITS/ML UNITS SQ ONE (06:49)
[2021-12-15] MEDS ORDERED: DEXTROSE 5%-WATER 100 ML IVPB ONE (09:40)
[2021-12-15] MEDS: POLYETHYLENE GLYCOL (HEALTHYLAX) 3350 17 GM PACKET PO SCH ×2 (09:47→21:34)
[2021-12-15] MEDS: CEFTRIAXONE 2 GM in DEXTROSE 5%-WATER 2 GM/100 ML BAG IVPB SCH (09:47)
[2021-12-15] MEDS: ENOXAPARIN NA (PORCINE) 40 MG/0.4 ML DISP.SYRIN SQ SCH (09:47)
[2021-12-15 10:09] LABS: BASO % 1.7 % (0-2.0); EOS % 5.7 % (0-4.5); HEMATOCRIT 36.5 % (35.4-49); HEMOGLOBIN 12.8 GM/dL (11.7-16.9); LYMPH % 26.6 % (8-40); MCH 31.9 pg (25.7-33.7); MCHC 35.1 g/dl (32.0-35.9); MEAN CELL VOLUME 90.9 fl (80-96); MEAN PLT VOLUME 8.2 fl (7.5-11.1); MONO % 9.9 % (3.8-10.2); NEUT % 56.1 % (42.8-82.8); PLATELET COUNT 232 10^3/uL (134-434); RBC 4.02 M/mm3 (4.00-5.60); RDW 12.5 % (11.9-15.9)
[2021-12-15 10:29] LABS: BLOOD UREA NITROGEN 21.4 mg/dL (7-18); CALCIUM 9.3 mg/dL (8.5-10.1)
[2021-12-15 10:32] LABS: CREATININE 0.7 mg/dL (0.55-1.3)
[2021-12-15] MEDS: oxyCODONE HCL 5 MG TABLET PO PRN (13:27)
[2021-12-16] MEDS: INSULIN (LEVEMIR) 100 UNITS/ML UNITS SQ SCH (06:35)
[2021-12-16] MEDS: INSULIN SLIDING SCALE (NOVOLOG) 1 VIAL SQ SCH ×3 (06:36→16:19)
[2021-12-16] MEDS ORDERED: INSULIN (NOVOLOG) ASPART 100 UNITS/ML 10ML VIAL ONE ×3 (06:36→20:49)
[2021-12-16 09:35] LABS: BASO % 1.4 % (0-2.0); EOS % 5.9 % (0-4.5); HEMATOCRIT 36.7 % (35.4-49); HEMOGLOBIN 12.6 GM/dL (11.7-16.9); LYMPH % 26.8 % (8-40); MCH 31.3 pg (25.7-33.7); MCHC 34.3 g/dl (32.0-35.9); MEAN CELL VOLUME 91.3 fl (80-96); MEAN PLT VOLUME 8.3 fl (7.5-11.1); MONO % 9.2 % (3.8-10.2); NEUT % 56.7 % (42.8-82.8); PLATELET COUNT 225 10^3/uL (134-434); RBC 4.02 M/mm3 (4.00-5.60); RDW 12.1 % (11.9-15.9); WHITE BLOOD COUNT 4.3 K/mm3 (4.0-10.0)
[2021-12-16] MEDS ORDERED: DEXTROSE 5%-WATER 100 ML IVPB ONE (09:52)
[2021-12-16] MEDS: CEFTRIAXONE 2 GM in DEXTROSE 5%-WATER 2 GM/100 ML BAG IVPB SCH (09:54)
[2021-12-16] MEDS: ENOXAPARIN NA (PORCINE) 40 MG/0.4 ML DISP.SYRIN SQ SCH (09:54)
[2021-12-16] MEDS: POLYETHYLENE GLYCOL (HEALTHYLAX) 3350 17 GM PACKET PO SCH ×2 (09:55→21:33)
[2021-12-16 10:12] LABS: BLOOD UREA NITROGEN 14.6 mg/dL (7-18); CALCIUM 9.2 mg/dL (8.5-10.1)
[2021-12-16 10:16] LABS: CREATININE 0.6 mg/dL (0.55-1.3)
[2021-12-17] MEDS: INSULIN SLIDING SCALE (NOVOLOG) 1 VIAL SQ SCH ×3 (06:23→16:55)
[2021-12-17] MEDS: INSULIN (LEVEMIR) 100 UNITS/ML UNITS SQ SCH (06:23)
[2021-12-17] MEDS: CEFTRIAXONE 2 GM in DEXTROSE 5%-WATER 2 GM/100 ML BAG IVPB SCH (09:50)
[2021-12-17] MEDS: ENOXAPARIN NA (PORCINE) 40 MG/0.4 ML DISP.SYRIN SQ SCH (09:50)
[2021-12-17] MEDS: POLYETHYLENE GLYCOL (HEALTHYLAX) 3350 17 GM PACKET PO SCH ×2 (09:50→21:03)
[2021-12-17 10:05] LABS: BASO % 1.2 % (0-2.0); EOS % 5.6 % (0-4.5); HEMATOCRIT 36.6 % (35.4-49); HEMOGLOBIN 12.4 GM/dL (11.7-16.9); LYMPH % 29.2 % (8-40); MEAN PLT VOLUME 8.7 fl (7.5-11.1); PLATELET COUNT 218 10^3/uL (134-434); RBC 4.02 M/mm3 (4.00-5.60); RDW 12.4 % (11.9-15.9); WHITE BLOOD COUNT 4.5 K/mm3 (4.0-10.0)
[2021-12-17 10:42] LABS: BLOOD UREA NITROGEN 21.1 mg/dL (7-18); CALCIUM 9.3 mg/dL (8.5-10.1)
[2021-12-17 10:46] LABS: CREATININE 0.7 mg/dL (0.55-1.3)
[2021-12-17] MEDS: oxyCODONE HCL 5 MG TABLET PO PRN (11:56)
[2021-12-18 06:49] VITALS: TEMP 97.6
[2021-12-18] MEDS: INSULIN (LEVEMIR) 100 UNITS/ML UNITS SQ SCH (07:01)
[2021-12-18] MEDS: INSULIN SLIDING SCALE (NOVOLOG) 1 VIAL SQ SCH ×2 (07:02→11:46)
[2021-12-18] MEDS ORDERED: INSULIN (NOVOLOG) ASPART 100 UNITS/ML 10ML VIAL ONE ×2 (07:20→11:43)
[2021-12-18 10:13] LABS: EOS % 5.6 % (0-4.5); HEMATOCRIT 38.3 % (35.4-49); HEMOGLOBIN 12.9 GM/dL (11.7-16.9); LYMPH % 25.9 % (8-40); MCH 30.7 pg (25.7-33.7); MCHC 33.6 g/dl (32.0-35.9); MEAN CELL VOLUME 91.4 fl (80-96); MEAN PLT VOLUME 8.7 fl (7.5-11.1); MONO % 10.9 % (3.8-10.2); NEUT % 56.6 % (42.8-82.8); PLATELET COUNT 201 10^3/uL (134-434); RBC 4.19 M/mm3 (4.00-5.60); RDW 12.5 % (11.9-15.9); WHITE BLOOD COUNT 4.5 K/mm3 (4.0-10.0)
[2021-12-18] MEDS ORDERED: DEXTROSE 5%-WATER 100 ML IVPB ONE (10:16)
[2021-12-18] MEDS: ENOXAPARIN NA (PORCINE) 40 MG/0.4 ML DISP.SYRIN SQ SCH (10:33)
[2021-12-18] MEDS: CEFTRIAXONE 2 GM in DEXTROSE 5%-WATER 2 GM/100 ML BAG IVPB SCH (10:33)
[2021-12-18] MEDS: POLYETHYLENE GLYCOL (HEALTHYLAX) 3350 17 GM PACKET PO SCH (10:34)
[2021-12-18 10:46] VITALS: BP 129/79; PULSE 85
[2021-12-18 10:52] LABS: CALCIUM 9.5 mg/dL (8.5-10.1)
[2021-12-18] MEDS ORDERED: ACETAMINOPHEN 325 MG TABLET (FP) PO ONE (10:52)
[2021-12-18 10:53] LABS: BLOOD UREA NITROGEN 16.7 mg/dL (7-18)
[2021-12-18 10:56] LABS: CREATININE 0.6 mg/dL (0.55-1.3)
== END 2021-12-18 12:15 | disposition home or self-care (01) | DRG 305 ==
LOC: JER 16:10 → JERBED 17:35 → J6S 22:24
PROVIDERS: ADMIT Hospitalist; ATTEND Internal Medicine
PROC: 3E10X8Z Irrigation of Skin and Mucous Membranes using Irrigating Substance (ICD-10-PCS; 2021-11-25)
PROC: 2W1UX6Z Compression of Right Toe using Pressure Dressing (ICD-10-PCS; 2021-11-25)
PROC: 0Y9M0ZZ Drainage of Right Foot, Open Approach (ICD-10-PCS; 2021-11-25)
PROC: 0Y6R0Z0 Detachment at Right 2nd Toe, Complete, Open Approach (ICD-10-PCS; principal; 2021-11-25 08:00)
PROC: 0Y6M0ZB Detachment at Right Foot, Partial 2nd Ray, Open Approach (ICD-10-PCS; 2021-12-02)
PROC: 0JBQ0ZZ Excision of Right Foot Subcutaneous Tissue and Fascia, Open Approach (ICD-10-PCS; 2021-12-02 07:30)
PROC: 02HV33Z Insertion of Infusion Device into Superior Vena Cava, Percutaneous Approach (ICD-10-PCS; 2021-12-17)
PROC: B518ZZA Fluoroscopy of Superior Vena Cava, Guidance (ICD-10-PCS; 2021-12-17)
DX: E11.52 Type 2 diabetes mellitus with diabetic peripheral angiopathy with gangrene (principal); S97.101A Crushing injury of unspecified right toe(s), initial encounter; I96 Gangrene, not elsewhere classified; E86.0 Dehydration; E11.65 Type 2 diabetes mellitus with hyperglycemia; L03.113 Cellulitis of right upper limb; R50.9 Fever, unspecified; D72.829 Elevated white blood cell count, unspecified; E11.10 Type 2 diabetes mellitus with ketoacidosis without coma; R00.0 Tachycardia, unspecified; L02.611 Cutaneous abscess of right foot; R91.1 Solitary pulmonary nodule; E11.69 Type 2 diabetes mellitus with other specified complication; M86.8X7 Other osteomyelitis, ankle and foot; T81.30XA Disruption of wound, unspecified, initial encounter; Y83.8 Other surgical procedures as the cause of abnormal reaction of the patient, or of later complication, without mention of misadventure at the time of the procedure; L08.89 Other specified local infections of the skin and subcutaneous tissue; E11.621 Type 2 diabetes mellitus with foot ulcer; B95.4 Other streptococcus as the cause of diseases classified elsewhere; B95.1 Streptococcus, group B, as the cause of diseases classified elsewhere; L97.518 Non-pressure chronic ulcer of other part of right foot with other specified severity; W17.89XA Other fall from one level to another, initial encounter; Y92.098 Other place in other non-institutional residence as the place of occurrence of the external cause
CPT/HCPCS: 36415; 36569; 36600; 71045-TC-FY; 73630-TC-RT-FY; 73660-TC-FY; 73701-TC-RT; 80048; 80053; 81003; 82010; 82043; 82570; 82803; 82962; 83036; 83605; 83735; 84100; 85025; 85610; 85651; 85730; 86140; 86850; 86900; 86901; 87040; 87070; 87075; 87077; 87186; 87205; 87804; 88304-TC; 88305-TC; 88311-TC; 93005; 93010; 93926-TC; 94010; 94760; 97116-GP; 97162-GP; 99285-25; C9803-CS; G0480; Q9967; U0003; U0005

== ENCOUNTER 2021-12-19 10:39 | Day surgery (SDC) | payer OTHER ==
[2021-12-19] MEDS ORDERED: CEFTRIAXONE 2 GM-D5W BAG 2 GM/50 ML BAG IVPB SCH (10:59)
[2021-12-19 12:06] VITALS: BP 117/77; PULSE 93; TEMP 98.4
[2021-12-20] MEDS ORDERED: CEFTRIAXONE 2 GM-D5W BAG 2 GM/50 ML BAG IVPB SCH (10:56)
== END 2021-12-19 12:10 | disposition home or self-care (01) ==
LOC: FINFUSION 10:39 → FM/S 10:42 → FINFUSION 12:10
PROVIDERS: ATTEND Internal Medicine Infectious Disease
DX: E11.52 Type 2 diabetes mellitus with diabetic peripheral angiopathy with gangrene (principal); Z79.4 Long term (current) use of insulin
CPT/HCPCS: 96365; 96367

== ENCOUNTER 2021-12-20 10:39 | Day surgery (SDC) | payer OTHER ==
[2021-12-20] MEDS ORDERED: CEFTRIAXONE 2 GM in DEXTROSE 5%-WATER 100 ML IVPB ONE (11:15)
[2021-12-20 11:54] VITALS: BP 116/81; PULSE 98; TEMP 97.9
== END 2021-12-20 12:02 | disposition home or self-care (01) ==
LOC: FPST 10:39 → FM/S 10:44 → FINFUSION 12:02
PROVIDERS: ATTEND Internal Medicine Infectious Disease
DX: E11.52 Type 2 diabetes mellitus with diabetic peripheral angiopathy with gangrene (principal); I96 Gangrene, not elsewhere classified; Z79.4 Long term (current) use of insulin
CPT/HCPCS: 96365

== ENCOUNTER 2021-12-21 11:00 | Day surgery (SDC) | payer OTHER ==
[2021-12-21] MEDS ORDERED: DEXTROSE 5%-WATER 100 ML IVPB ONE (11:37)
[2021-12-21 11:58] VITALS: BP 127/76; PULSE 100; TEMP 98.1
[2021-12-21] MEDS ORDERED: CEFTRIAXONE 2 GM in DEXTROSE 5%-WATER 100 ML IVPB ONE (12:00)
== END 2021-12-21 12:15 | disposition home or self-care (01) ==
LOC: FINFUSION 11:00 → FM/S 11:02 → FINFUSION 12:15
PROVIDERS: ATTEND Internal Medicine Infectious Disease
DX: E11.52 Type 2 diabetes mellitus with diabetic peripheral angiopathy with gangrene (principal); I96 Gangrene, not elsewhere classified; Z79.4 Long term (current) use of insulin
CPT/HCPCS: 96365

== ENCOUNTER 2021-12-22 10:36 | Day surgery (SDC) | payer OTHER ==
[2021-12-22] MEDS ORDERED: SODIUM CHLORIDE 100 ML IVPB ONE (10:59)
[2021-12-22] MEDS ORDERED: CEFTRIAXONE 2 GM in DEXTROSE 5%-WATER 100 ML IVPB ONE (11:00)
[2021-12-22] MEDS ORDERED: CEFTRIAXONE 2 GM in SODIUM CHLORIDE 100 ML IVPB ONE (11:00)
[2021-12-22 12:17] VITALS: BP 116/71; PULSE 93; TEMP 98.2
== END 2021-12-22 12:20 | disposition home or self-care (01) ==
LOC: FINFUSION 10:36 → FM/S 10:37 → FINFUSION 12:20
PROVIDERS: ATTEND Internal Medicine Infectious Disease
DX: E11.52 Type 2 diabetes mellitus with diabetic peripheral angiopathy with gangrene (principal); I96 Gangrene, not elsewhere classified; Z79.4 Long term (current) use of insulin
CPT/HCPCS: 36415; 85651; 86140; 96365; 96367

== ENCOUNTER 2021-12-23 10:29 | Day surgery (SDC) | payer OTHER ==
[2021-12-23] MEDS ORDERED: SODIUM CHLORIDE 100 ML IVPB ONE (10:39)
[2021-12-23] MEDS ORDERED: CEFTRIAXONE 2 GM in SODIUM CHLORIDE 100 ML IVPB ONE (11:00)
[2021-12-23 11:37] VITALS: BP 118/76; PULSE 105; TEMP 97.9
== END 2021-12-23 11:46 | disposition home or self-care (01) ==
LOC: FINFUSION 10:29 → FM/S 10:33 → FINFUSION 11:46
PROVIDERS: ATTEND Internal Medicine Infectious Disease
DX: E11.52 Type 2 diabetes mellitus with diabetic peripheral angiopathy with gangrene (principal); I96 Gangrene, not elsewhere classified; Z79.4 Long term (current) use of insulin
CPT/HCPCS: 96365

== ENCOUNTER 2021-12-24 13:14 | Day surgery (SDC) | payer OTHER ==
[2021-12-24] MEDS ORDERED: SODIUM CHLORIDE 100 ML IVPB ONE (13:25)
[2021-12-24 13:34] VITALS: TEMP 97.5
[2021-12-24] MEDS ORDERED: CEFTRIAXONE 2 GM in SODIUM CHLORIDE 100 ML IVPB ONE (14:00)
[2021-12-24 14:30] VITALS: BP 102/73; PULSE 97
== END 2021-12-24 16:30 | disposition home or self-care (01) ==
LOC: FINFUSION 13:14 → FM/S 13:15 → FINFUSION 16:30
PROVIDERS: ATTEND Internal Medicine Infectious Disease
DX: E11.52 Type 2 diabetes mellitus with diabetic peripheral angiopathy with gangrene (principal); I96 Gangrene, not elsewhere classified; Z79.4 Long term (current) use of insulin
CPT/HCPCS: 96365

== ENCOUNTER 2021-12-25 10:31 | Day surgery (SDC) | payer OTHER ==
[2021-12-25 10:54] VITALS: TEMP 98.4
[2021-12-25] MEDS ORDERED: SODIUM CHLORIDE 100 ML IVPB ONE (11:04)
[2021-12-25] MEDS ORDERED: CEFTRIAXONE 2 GM in SODIUM CHLORIDE 100 ML IVPB ONE (11:15)
[2021-12-25 12:02] VITALS: BP 106/67; PULSE 106
== END 2021-12-25 11:55 | disposition home or self-care (01) ==
LOC: FINFUSION 10:31 → FM/S 10:31 → FINFUSION 11:55
PROVIDERS: ATTEND Internal Medicine Infectious Disease
DX: E11.52 Type 2 diabetes mellitus with diabetic peripheral angiopathy with gangrene (principal); I96 Gangrene, not elsewhere classified; Z79.4 Long term (current) use of insulin
CPT/HCPCS: 96365

== ENCOUNTER 2021-12-26 09:31 | Day surgery (SDC) | payer OTHER ==
[2021-12-26 10:00] VITALS: TEMP 98
[2021-12-26] MEDS ORDERED: CEFTRIAXONE 2 GM-D5W BAG 2 GM/50 ML BAG IVPB SCH ×2 (10:00→10:08)
[2021-12-26] MEDS ORDERED: cefTRIAXone 2 GM/100 ML BAG (PRE-DOCKED) IVPB SCH ×2 (10:15)
[2021-12-26 11:03] VITALS: BP 115/66; PULSE 105
[2021-12-27] MEDS ORDERED: cefTRIAXone 2 GM/100 ML BAG (PRE-DOCKED) IVPB SCH (10:06)
== END 2021-12-26 11:03 | disposition home or self-care (01) ==
LOC: FINFUSION 09:31 → FM/S 09:34 → FINFUSION 11:03
PROVIDERS: ATTEND Internal Medicine Infectious Disease
DX: E11.52 Type 2 diabetes mellitus with diabetic peripheral angiopathy with gangrene (principal); I96 Gangrene, not elsewhere classified; Z79.4 Long term (current) use of insulin
CPT/HCPCS: 96365

== ENCOUNTER 2021-12-27 10:13 | Day surgery (SDC) | payer OTHER ==
[2021-12-27] MEDS ORDERED: CEFTRIAXONE 2 GM in DEXTROSE 5%-WATER 100 ML IVPB ONE (11:00)
[2021-12-27 11:08] VITALS: TEMP 97.8; BMI 59.9
[2021-12-27] MEDS ORDERED: DEXTROSE 5%-WATER 100 ML IVPB ONE (11:09)
[2021-12-27 12:00] VITALS: BP 124/69; PULSE 100
== END 2021-12-27 12:00 | disposition home or self-care (01) ==
LOC: FM/S 10:13 → FINFUSION 10:13 → FM/S 10:20 → EDSTATUS 10:33 → FM/S 12:00
PROVIDERS: ATTEND Internal Medicine Infectious Disease
DX: E11.52 Type 2 diabetes mellitus with diabetic peripheral angiopathy with gangrene (principal); I96 Gangrene, not elsewhere classified; Z79.4 Long term (current) use of insulin
CPT/HCPCS: 96365

== ENCOUNTER 2021-12-28 10:08 | Day surgery (SDC) | payer OTHER ==
[2021-12-28] MEDS ORDERED: SODIUM CHLORIDE 100 ML IVPB ONE (10:33)
[2021-12-28] MEDS ORDERED: CEFTRIAXONE 2 GM in SODIUM CHLORIDE 100 ML IVPB ONE (10:45)
[2021-12-28 10:53] VITALS: BP 120/78; PULSE 89; TEMP 97.9
== END 2021-12-28 11:15 | disposition home or self-care (01) ==
LOC: FINFUSION 10:08 → FM/S 10:12 → FINFUSION 11:15
PROVIDERS: ATTEND Internal Medicine Infectious Disease
DX: E11.52 Type 2 diabetes mellitus with diabetic peripheral angiopathy with gangrene (principal); I96 Gangrene, not elsewhere classified; Z79.4 Long term (current) use of insulin
CPT/HCPCS: 36415; 85651; 86140; 96365

== ENCOUNTER 2021-12-29 10:36 | Day surgery (SDC) | payer OTHER ==
[2021-12-29] MEDS ORDERED: SODIUM CHLORIDE 100 ML IVPB ONE (10:56)
[2021-12-29] MEDS ORDERED: CEFTRIAXONE 2 GM in SODIUM CHLORIDE 100 ML IVPB ONE (11:00)
[2021-12-29 11:35] VITALS: BP 112/65; PULSE 108; TEMP 98.3
== END 2021-12-29 11:40 | disposition home or self-care (01) ==
LOC: FINFUSION 10:36 → FM/S 10:37 → FINFUSION 11:40
PROVIDERS: ATTEND Internal Medicine Infectious Disease
DX: E11.52 Type 2 diabetes mellitus with diabetic peripheral angiopathy with gangrene (principal); I96 Gangrene, not elsewhere classified; Z79.4 Long term (current) use of insulin
CPT/HCPCS: 96365

== ENCOUNTER 2021-12-30 10:17 | Day surgery (SDC) | payer OTHER ==
[2021-12-30] MEDS ORDERED: CEFTRIAXONE 2 GM in SODIUM CHLORIDE 100 ML IVPB ONE (10:30)
[2021-12-30] MEDS ORDERED: SODIUM CHLORIDE 100 ML IVPB ONE (10:32)
[2021-12-30 11:14] VITALS: BP 100/66; PULSE 102; TEMP 98
== END 2021-12-30 11:17 | disposition home or self-care (01) ==
LOC: FINFUSION 10:17 → FM/S 10:18 → FINFUSION 11:17
PROVIDERS: ATTEND Internal Medicine Infectious Disease
DX: E11.52 Type 2 diabetes mellitus with diabetic peripheral angiopathy with gangrene (principal); I96 Gangrene, not elsewhere classified; Z79.4 Long term (current) use of insulin
CPT/HCPCS: 96365

== ENCOUNTER 2021-12-31 10:04 | Day surgery (SDC) | payer OTHER ==
[2021-12-31] MEDS ORDERED: SODIUM CHLORIDE 100 ML IVPB ONE (10:39)
[2021-12-31] MEDS ORDERED: CEFTRIAXONE 2 GM in SODIUM CHLORIDE 100 ML IVPB ONE (10:55)
[2021-12-31 11:28] VITALS: BP 121/75; PULSE 108; TEMP 98.1
== END 2021-12-31 11:29 | disposition home or self-care (01) ==
LOC: FINFUSION 10:04 → FM/S 10:11 → FINFUSION 11:29
PROVIDERS: ATTEND Internal Medicine Infectious Disease
DX: E11.52 Type 2 diabetes mellitus with diabetic peripheral angiopathy with gangrene (principal); I96 Gangrene, not elsewhere classified; Z79.4 Long term (current) use of insulin
CPT/HCPCS: 96365

== ENCOUNTER 2022-01-01 10:50 | Day surgery (SDC) | payer OTHER ==
[2022-01-01] MEDS ORDERED: CEFTRIAXONE 2 GM in SODIUM CHLORIDE 100 ML IVPB ONE (11:15)
[2022-01-01] MEDS ORDERED: SODIUM CHLORIDE 100 ML IVPB ONE (11:17)
[2022-01-01 12:19] VITALS: BP 100/66; PULSE 100; TEMP 97.7
== END 2022-01-01 12:32 | disposition home or self-care (01) ==
LOC: FINFUSION 10:50 → FM/S 10:51 → FINFUSION 12:32
PROVIDERS: ATTEND Internal Medicine Infectious Disease
DX: E11.52 Type 2 diabetes mellitus with diabetic peripheral angiopathy with gangrene (principal); I96 Gangrene, not elsewhere classified; Z79.4 Long term (current) use of insulin
CPT/HCPCS: 81025; 96365

== ENCOUNTER 2022-12-14 22:11 | Inpatient (IN) | payer OTHER ==
[2022-12-15] MEDS ORDERED: PIPERACILLIN/TAZOB 4.5 GM 4.5 GM in DEXTROSE 5%-WATER 100 ML IVPB ONE (02:10)
[2022-12-15] MEDS ORDERED: VANCOMYCIN 1,000 MG in DEXTROSE 5%-WATER - 250 ML IVPB ONE (02:10)
[2022-12-15] MEDS ORDERED: PIPERACILLIN/TAZOB 4.5 GM 4.5 GM/100 ML BAG IVPB ONE (02:19)
[2022-12-15 02:56] LABS: BASO % 0.6 % (0-2.0); EOS % 0.1 % (0-4.5); HEMATOCRIT 40.6 % (35.4-49); HEMOGLOBIN 14.2 GM/dL (11.7-16.9); LYMPH % 9.9 % (8-40); MEAN CELL VOLUME 94.1 fl (80-96); MEAN PLT VOLUME 9.6 fl (7.5-11.1); MONO % 8.6 % (3.8-10.2); NEUT % 80.8 % (42.8-82.8); PLATELET COUNT 178 10^3/uL (134-434); RBC 4.32 M/mm3 (4.00-5.60); RDW 13.7 % (11.9-15.9); WHITE BLOOD COUNT 12.8 K/mm3 (4.0-10.0)
[2022-12-15 03:21] LABS: POTASSIUM 4.1 mmol/L (3.5-5.1)
[2022-12-15 03:23] LABS: PROTHROMBIN TIME (PATIENT) 11.6 SEC (9.7-13.0)
[2022-12-15 03:24] LABS: ALBUMIN 3.8 g/dl (3.4-5.0); CALCIUM 9.1 mg/dL (8.5-10.1)
[2022-12-15 03:26] LABS: ACTIVATED PTT 28.9 SECONDS (25.2-36.5)
[2022-12-15 03:27] LABS: CREATININE 1.1 mg/dL (0.55-1.3)
[2022-12-15 03:29] LABS: BILIRUBIN,TOTAL 0.9 mg/dL (0.2-1); TOT PROT 8.2 g/dl (6.4-8.2)
[2022-12-15] MEDS ORDERED: VANCOMYCIN/WATER FOR INJ (PEG) 1,000 MG/200 ML BAG IVPB ONE (03:29)
[2022-12-15] MEDS ORDERED: LACTATED RINGERS SOLUTION 1,000 ML IV SCH (05:15)
[2022-12-15] MEDS ORDERED: INSULIN (NOVOLOG) ASPART 100 UNITS/ML 10ML VIAL SQ ONE (05:34)
[2022-12-15] MEDS ORDERED: SODIUM CHLORIDE 1,000 ML IV STA (05:35)
[2022-12-15] MEDS ORDERED: ACETAMINOPHEN 1000 MG/100 ML BAG IVPB PRN (05:57)
[2022-12-15] MEDS ORDERED: PIPERACILLIN/TAZOB 3.375 GM 3.375 GM in DEXTROSE 5%-WATER - 50 ML IVPB SCH (09:00)
[2022-12-15] MEDS: INSULIN SLIDING SCALE (NOVOLOG) 1 VIAL SQ SCH ×4 (10:00→22:31)
[2022-12-15] MEDS ORDERED: INSULIN (NOVOLOG) ASPART 100 UNITS/ML 10ML VIAL ONE ×2 (11:25→17:04)
[2022-12-15 11:26] LABS: BASO % 0.3 % (0-2.0); EOS % 0.2 % (0-4.5); HEMATOCRIT 33.2 % (35.4-49); HEMOGLOBIN 11.7 GM/dL (11.7-16.9); LYMPH % 9.6 % (8-40); MCH 32.9 pg (25.7-33.7); MCHC 35.3 g/dl (32.0-35.9); MEAN CELL VOLUME 93.1 fl (80-96); MONO % 9.7 % (3.8-10.2); NEUT % 80.2 % (42.8-82.8); PLATELET COUNT 159 10^3/uL (134-434); RBC 3.57 M/mm3 (4.00-5.60); RDW 13.6 % (11.9-15.9); WHITE BLOOD COUNT 9.4 K/mm3 (4.0-10.0)
[2022-12-15 11:34] LABS: INR 1.06 (0.83-1.09); PROTHROMBIN TIME (PATIENT) 12.3 SEC (9.7-13.0)
[2022-12-15 11:37] LABS: ACTIVATED PTT 26.2 SECONDS (25.2-36.5)
[2022-12-15 11:48] LABS: POTASSIUM 3.9 mmol/L (3.5-5.1)
[2022-12-15 11:52] LABS: CALCIUM 8.3 mg/dL (8.5-10.1)
[2022-12-15 11:53] LABS: BLOOD UREA NITROGEN 9.8 mg/dL (7-18)
[2022-12-15 11:56] LABS: BILIRUBIN,TOTAL 0.6 mg/dL (0.2-1); CREATININE 0.8 mg/dL (0.55-1.3); PHOSPHOROUS 1.8 mg/dL (2.5-4.9)
[2022-12-15 11:58] LABS: TOT PROT 6.6 g/dl (6.4-8.2)
[2022-12-15 13:11] VITALS: BMI 28.7
[2022-12-15] MEDS: PIPERACILLIN/TAZOB 3.375 GM 3.375 GM in DEXTROSE 5%-WATER - 50 ML IVPB SCH ×2 (15:22→22:27)
[2022-12-15] MEDS: VANCOMYCIN/WATER FOR INJ (PEG) 1,000 MG/200 ML BAG IVPB SCH (16:27)
[2022-12-15] MEDS ORDERED: ATORVASTATIN CA 40 MG TABLET (FP) PO SCH (22:00)
[2022-12-15] MEDS ORDERED: SODIUM CHLORIDE 1,000 ML IV SCH (22:15)
[2022-12-16] MEDS: PIPERACILLIN/TAZOB 3.375 GM 3.375 GM in DEXTROSE 5%-WATER - 50 ML IVPB SCH ×4 (02:56→21:39)
[2022-12-16] MEDS ORDERED: VANCOMYCIN 1 GM/200 ML PREMIX BAG (RESTRICTED TO ID ONLY) IVPB SCH (04:00)
[2022-12-16] MEDS: VANCOMYCIN/WATER FOR INJ (PEG) 1,000 MG/200 ML BAG IVPB SCH ×2 (04:04→18:39)
[2022-12-16] MEDS: INSULIN SLIDING SCALE (NOVOLOG) 1 VIAL SQ SCH ×4 (06:47→21:50)
[2022-12-16] MEDS ORDERED: INSULIN (LEVEMIR) 100 UNITS/ML UNITS SQ SCH ×2 (10:45→22:00)
[2022-12-16] MEDS ORDERED: LIDOCAINE HCL 1%, 10 MG/ML (10ML VIAL) MDV ONE (15:45)
[2022-12-16] MEDS ORDERED: BUPIVACAINE HCL/PF 0.5% (5MG/ML) 10 ML VIAL ONE (15:46)
[2022-12-16] MEDS ORDERED: MIDAZOLAM HCL 2 MG/2 ML SINGLE DOSE VIAL ONE (16:50)
[2022-12-16] MEDS ORDERED: SUCCINYLCHOLINE CHLORIDE 200 MG/10 ML SYRINGE ONE (16:52)
[2022-12-16] MEDS ORDERED: PROPOFOL 20 ML ONE ×2 (16:52→16:56)
[2022-12-16] MEDS ORDERED: VANCOMYCIN 1,000 MG VIAL (RESTRICTED TO ID ONLY) IVPB ONE (17:00)
[2022-12-16] MEDS ORDERED: LIDOCAINE HCL 1%, 10 MG/ML (20ML VIAL) NR ONE (17:03)
[2022-12-16] MEDS ORDERED: BUPIVACAINE HCL/PF 0.5% (5 MG/ML) 30 ML VIAL IJ ONE (17:03)
[2022-12-16] MEDS ORDERED: ONDANSETRON 4 MG/2 ML VIAL IVPUSH PRN (17:27)
[2022-12-16] MEDS ORDERED: ACETAMINOPHEN 1000 MG/100 ML BAG IVPB ONE (17:28)
[2022-12-16] MEDS ORDERED: LACTATED RINGERS SOLUTION 1,000 ML IV SCH (17:30)
[2022-12-16] MEDS ORDERED: ACETAMINOPHEN INJECTION 100 ML IVPB ONE (18:07)
[2022-12-16] MEDS ORDERED: INSULIN (NOVOLOG) ASPART 100 UNITS/ML 10ML VIAL ONE ×3 (18:31→21:20)
[2022-12-16] MEDS: ATORVASTATIN CA 40 MG TABLET (FP) PO SCH (21:40)
[2022-12-17] MEDS: PIPERACILLIN/TAZOB 3.375 GM 3.375 GM in DEXTROSE 5%-WATER - 50 ML IVPB SCH ×4 (03:02→21:44)
[2022-12-17] MEDS ORDERED: VANCOMYCIN/WATER FOR INJ (PEG) 1,000 MG/200 ML BAG IVPB SCH (04:00)
[2022-12-17] MEDS ORDERED: VANCOMYCIN 1 GM in D5W (PRE-DOCKED) 1,000 MG/250 ML (RESTRICTED TO ID ONLY IVPB SCH (04:00)
[2022-12-17] MEDS: INSULIN SLIDING SCALE (NOVOLOG) 1 VIAL SQ SCH ×4 (06:31→21:41)
[2022-12-17 07:34] LABS: BASO % 1.2 % (0-2.0); EOS % 1.8 % (0-4.5); HEMATOCRIT 32.5 % (35.4-49); HEMOGLOBIN 11.6 GM/dL (11.7-16.9); LYMPH % 16.3 % (8-40); MCH 32.8 pg (25.7-33.7); MCHC 35.7 g/dl (32.0-35.9); MEAN CELL VOLUME 91.7 fl (80-96); MEAN PLT VOLUME 8.6 fl (7.5-11.1); MONO % 10.1 % (3.8-10.2); NEUT % 70.6 % (42.8-82.8); PLATELET COUNT 191 10^3/uL (134-434); RBC 3.55 M/mm3 (4.00-5.60); RDW 13.1 % (11.9-15.9); WHITE BLOOD COUNT 5.5 K/mm3 (4.0-10.0)
[2022-12-17 07:55] LABS: POTASSIUM 3.2 mmol/L (3.5-5.1)
[2022-12-17 07:58] LABS: CALCIUM 8.4 mg/dL (8.5-10.1)
[2022-12-17 07:59] LABS: ALBUMIN 2.6 g/dl (3.4-5.0); BLOOD UREA NITROGEN 7.7 mg/dL (7-18); MAGNESIUM 1.8 mg/dL (1.8-2.4)
[2022-12-17 08:02] LABS: CREATININE 0.7 mg/dL (0.55-1.3); PHOSPHOROUS 1.8 mg/dL (2.5-4.9)
[2022-12-17 08:04] LABS: BILIRUBIN,TOTAL 0.5 mg/dL (0.2-1); TOT PROT 6.3 g/dl (6.4-8.2)
[2022-12-17] MEDS: INSULIN (LEVEMIR) 100 UNITS/ML UNITS SQ SCH ×2 (08:26→21:41)
[2022-12-17] MEDS ORDERED: POTASSIUM CHLORIDE TABS 20 MEQ TABLET.ER (FP) PO ONE (10:00)
[2022-12-17] MEDS: NAPH,MB-DB/K PH,MBDB POWDER PACKET PO SCH ×2 (10:54→21:45)
[2022-12-17] MEDS: ENOXAPARIN NA (PORCINE) 40 MG/0.4 ML DISP.SYRIN SQ SCH (10:55)
[2022-12-17] MEDS ORDERED: INSULIN (NOVOLOG) ASPART 100 UNITS/ML 10ML VIAL ONE ×3 (11:10→21:17)
[2022-12-17] MEDS: VANCOMYCIN/WATER FOR INJ (PEG) 1,000 MG/200 ML BAG IVPB SCH (16:18)
[2022-12-17] MEDS: ATORVASTATIN CA 40 MG TABLET (FP) PO SCH (21:45)
[2022-12-18] MEDS: PIPERACILLIN/TAZOB 3.375 GM 3.375 GM in DEXTROSE 5%-WATER - 50 ML IVPB SCH ×4 (02:42→21:59)
[2022-12-18] MEDS: VANCOMYCIN/WATER FOR INJ (PEG) 1,000 MG/200 ML BAG IVPB SCH ×2 (03:20→16:25)
[2022-12-18] MEDS: INSULIN SLIDING SCALE (NOVOLOG) 1 VIAL SQ SCH ×4 (06:18→22:00)
[2022-12-18] MEDS: INSULIN (LEVEMIR) 100 UNITS/ML UNITS SQ SCH ×2 (08:50→21:59)
[2022-12-18] MEDS: ENOXAPARIN NA (PORCINE) 40 MG/0.4 ML DISP.SYRIN SQ SCH (09:04)
[2022-12-18] MEDS ORDERED: INSULIN (NOVOLOG) ASPART 100 UNITS/ML 10ML VIAL ONE ×2 (11:27→16:52)
[2022-12-18] MEDS: ATORVASTATIN CA 40 MG TABLET (FP) PO SCH (22:00)
[2022-12-19] MEDS: PIPERACILLIN/TAZOB 3.375 GM 3.375 GM in DEXTROSE 5%-WATER - 50 ML IVPB SCH ×2 (02:07→08:49)
[2022-12-19] MEDS: VANCOMYCIN/WATER FOR INJ (PEG) 1,000 MG/200 ML BAG IVPB SCH (03:21)
[2022-12-19] MEDS: INSULIN SLIDING SCALE (NOVOLOG) 1 VIAL SQ SCH ×4 (06:44→22:21)
[2022-12-19] MEDS: INSULIN (LEVEMIR) 100 UNITS/ML UNITS SQ SCH ×2 (08:00→22:21)
[2022-12-19] MEDS ORDERED: INSULIN (LEVEMIR) 100 UNITS/ML UNITS SQ ONE (08:18)
[2022-12-19] MEDS: ENOXAPARIN NA (PORCINE) 40 MG/0.4 ML DISP.SYRIN SQ SCH (09:01)
[2022-12-19] MEDS: CEFTRIAXONE 2 GM in DEXTROSE 5%-WATER 100 ML IVPB SCH (10:12)
[2022-12-19] MEDS ORDERED: INSULIN (NOVOLOG) ASPART 100 UNITS/ML 10ML VIAL ONE ×2 (18:03→22:07)
[2022-12-19] MEDS ORDERED: ACETAMINOPHEN 325 MG TABLET (FP) PO PRN (20:41)
[2022-12-19] MEDS: ATORVASTATIN CA 40 MG TABLET (FP) PO SCH (22:20)
[2022-12-20] MEDS: INSULIN SLIDING SCALE (NOVOLOG) 1 VIAL SQ SCH ×4 (06:01→21:04)
[2022-12-20 07:30] LABS: EOS % 4.2 % (0-4.5); HEMATOCRIT 36.5 % (35.4-49); HEMOGLOBIN 12.8 GM/dL (11.7-16.9); LYMPH % 27.4 % (8-40); MCH 32.5 pg (25.7-33.7); MEAN CELL VOLUME 92.7 fl (80-96); MEAN PLT VOLUME 8.5 fl (7.5-11.1); MONO % 10.9 % (3.8-10.2); NEUT % 56.5 % (42.8-82.8); PLATELET COUNT 262 10^3/uL (134-434); RBC 3.93 M/mm3 (4.00-5.60); WHITE BLOOD COUNT 4.6 K/mm3 (4.0-10.0)
[2022-12-20 07:40] LABS: ALBUMIN 2.9 g/dl (3.4-5.0); CALCIUM 9.4 mg/dL (8.5-10.1)
[2022-12-20 07:41] LABS: BLOOD UREA NITROGEN 9.4 mg/dL (7-18)
[2022-12-20 07:43] LABS: CREATININE 0.8 mg/dL (0.55-1.3)
[2022-12-20 07:45] LABS: TOT PROT 7.1 g/dl (6.4-8.2)
[2022-12-20 07:56] LABS: BILIRUBIN,TOTAL 0.4 mg/dL (0.2-1)
[2022-12-20] MEDS: INSULIN (LEVEMIR) 100 UNITS/ML UNITS SQ SCH ×2 (09:23→21:03)
[2022-12-20] MEDS: ENOXAPARIN NA (PORCINE) 40 MG/0.4 ML DISP.SYRIN SQ SCH (09:26)
[2022-12-20] MEDS: CEFTRIAXONE 2 GM in DEXTROSE 5%-WATER 100 ML IVPB SCH (09:26)
[2022-12-20] MEDS ORDERED: INSULIN (NOVOLOG) ASPART 100 UNITS/ML 10ML VIAL ONE (20:49)
[2022-12-20] MEDS: ATORVASTATIN CA 40 MG TABLET (FP) PO SCH (21:04)
[2022-12-21] MEDS: INSULIN SLIDING SCALE (NOVOLOG) 1 VIAL SQ SCH ×4 (06:19→22:11)
[2022-12-21] MEDS ORDERED: INSULIN (LEVEMIR) 100 UNITS/ML UNITS SQ ONE (07:34)
[2022-12-21] MEDS ORDERED: INSULIN (NOVOLOG) ASPART 100 UNITS/ML 10ML VIAL ONE (07:34)
[2022-12-21 07:41] LABS: BASO % 1.2 % (0-2.0); EOS % 3.8 % (0-4.5); HEMATOCRIT 37.1 % (35.4-49); LYMPH % 28.8 % (8-40); MCH 32.3 pg (25.7-33.7); MCHC 35.1 g/dl (32.0-35.9); MEAN PLT VOLUME 8.4 fl (7.5-11.1); MONO % 10.4 % (3.8-10.2); NEUT % 55.8 % (42.8-82.8); PLATELET COUNT 296 10^3/uL (134-434); RBC 4.03 M/mm3 (4.00-5.60); RDW 13.4 % (11.9-15.9); WHITE BLOOD COUNT 4.7 K/mm3 (4.0-10.0)
[2022-12-21 07:55] LABS: POTASSIUM 4.2 mmol/L (3.5-5.1)
[2022-12-21 08:01] LABS: BLOOD UREA NITROGEN 11.9 mg/dL (7-18); CALCIUM 9.3 mg/dL (8.5-10.1)
[2022-12-21 08:04] LABS: CREATININE 0.7 mg/dL (0.55-1.3)
[2022-12-21 08:06] LABS: BILIRUBIN,TOTAL 0.4 mg/dL (0.2-1); TOT PROT 7.1 g/dl (6.4-8.2)
[2022-12-21] MEDS: INSULIN (LEVEMIR) 100 UNITS/ML UNITS SQ SCH ×2 (08:08→22:10)
[2022-12-21] MEDS: ENOXAPARIN NA (PORCINE) 40 MG/0.4 ML DISP.SYRIN SQ SCH (09:50)
[2022-12-21] MEDS: CEFTRIAXONE 2 GM in DEXTROSE 5%-WATER 100 ML IVPB SCH (09:50)
[2022-12-21] MEDS: ATORVASTATIN CA 40 MG TABLET (FP) PO SCH (22:11)
[2022-12-22] MEDS: INSULIN SLIDING SCALE (NOVOLOG) 1 VIAL SQ SCH ×3 (06:13→17:30)
[2022-12-22] MEDS ORDERED: INSULIN (NOVOLOG) ASPART 100 UNITS/ML 10ML VIAL ONE ×3 (07:32→17:15)
[2022-12-22] MEDS: INSULIN (LEVEMIR) 100 UNITS/ML UNITS SQ SCH (07:50)
[2022-12-22] MEDS: ENOXAPARIN NA (PORCINE) 40 MG/0.4 ML DISP.SYRIN SQ SCH (10:35)
[2022-12-22] MEDS: CEFTRIAXONE 2 GM in DEXTROSE 5%-WATER 100 ML IVPB SCH (10:35)
[2022-12-22] MEDS ORDERED: metroNIDAZOLE 250 MG TABLET PO SCH (14:00)
[2022-12-22 14:03] VITALS: BP 109/66; PULSE 85; RESP 20; TEMP 97.8
== END 2022-12-22 18:25 | disposition home or self-care (01) | DRG 314 ==
LOC: JER 22:11 → JERBED 12-15 02:26 → J7W 12-15 08:25
PROVIDERS: ADMIT Internal Medicine; ATTEND Internal Medicine
PROC: 0JBQ0ZZ Excision of Right Foot Subcutaneous Tissue and Fascia, Open Approach (ICD-10-PCS; 2022-12-16)
PROC: 0Y6V0Z0 Detachment at Right 4th Toe, Complete, Open Approach (ICD-10-PCS; principal; 2022-12-16 17:00)
PROC: 02HV33Z Insertion of Infusion Device into Superior Vena Cava, Percutaneous Approach (ICD-10-PCS; 2022-12-21)
PROC: B548ZZA Ultrasonography of Superior Vena Cava, Guidance (ICD-10-PCS; 2022-12-21)
DX: E11.69 Type 2 diabetes mellitus with other specified complication (principal); E11.65 Type 2 diabetes mellitus with hyperglycemia; E11.52 Type 2 diabetes mellitus with diabetic peripheral angiopathy with gangrene; L03.115 Cellulitis of right lower limb; M86.8X7 Other osteomyelitis, ankle and foot; E78.5 Hyperlipidemia, unspecified; I10 Essential (primary) hypertension; L02.611 Cutaneous abscess of right foot; E11.621 Type 2 diabetes mellitus with foot ulcer; E11.40 Type 2 diabetes mellitus with diabetic neuropathy, unspecified
CPT/HCPCS: 36415; 36569; 73590-TC-RT-FY; 73630-TC-RT-FY; 73700-TC-RT; 73719; 80053; 82550; 82553; 82962; 83036; 83605; 83735; 84100; 85025; 85610; 85651; 85730; 86140; 86850; 86900; 86901; 87040; 87070; 87075; 87077; 87186; 87205; 88305-TC; 88311-TC; 93005; 93010; 94760; 97116-GP; 97161-GP; 99285-25; C9803-CS; G0480; U0003; U0005

== ENCOUNTER 2022-12-23 11:48 | Day surgery (SDC) | payer OTHER ==
[2022-12-23] MEDS ORDERED: CEFTRIAXONE 2 GM in DEXTROSE 5%-WATER 100 ML IVPB ONE (12:15)
[2022-12-23 12:49] VITALS: BP 111/71; PULSE 94; RESP 18; TEMP 98.2
== END 2022-12-23 13:01 | disposition home or self-care (01) ==
LOC: FINFUSION 11:48 → FM/S 11:48 → FINFUSION 13:01
PROVIDERS: ATTEND Internal Medicine
DX: M86.9 Osteomyelitis, unspecified (principal); E11.9 Type 2 diabetes mellitus without complications; Z87.891 Personal history of nicotine dependence; Z89.421 Acquired absence of other right toe(s)
CPT/HCPCS: 96365

== ENCOUNTER 2022-12-24 11:50 | Day surgery (SDC) | payer OTHER ==
[2022-12-24] MEDS ORDERED: CEFTRIAXONE 2 GM in DEXTROSE 5%-WATER 100 ML IVPB ONE (12:15)
[2022-12-24 13:14] VITALS: BP 119/75; PULSE 90; RESP 18; TEMP 98.4
== END 2022-12-24 13:45 | disposition home or self-care (01) ==
LOC: FINFUSION 11:50 → FM/S 11:53 → FINFUSION 13:45
PROVIDERS: ATTEND Internal Medicine
DX: M86.9 Osteomyelitis, unspecified (principal)
CPT/HCPCS: 96365

== ENCOUNTER 2022-12-25 11:48 | Day surgery (SDC) | payer OTHER ==
[2022-12-25] MEDS ORDERED: CEFTRIAXONE 2 GM in SODIUM CHLORIDE 100 ML IVPB SCH (12:15)
[2022-12-25 12:58] VITALS: BP 123/75; PULSE 89; RESP 18; TEMP 98.1
== END 2022-12-25 12:55 | disposition home or self-care (01) ==
LOC: FINFUSION 11:48 → FM/S 11:49 → FINFUSION 12:55
PROVIDERS: ATTEND Internal Medicine
DX: M86.9 Osteomyelitis, unspecified (principal)
CPT/HCPCS: 96365

== ENCOUNTER 2022-12-26 11:48 | Day surgery (SDC) | payer OTHER ==
[2022-12-26] MEDS ORDERED: CEFTRIAXONE 2 GM in DEXTROSE 5%-WATER 100 ML IVPB ONE (12:00)
[2022-12-26 12:06] VITALS: BP 106/68; PULSE 98; RESP 16
[2022-12-26 12:16] VITALS: TEMP 97.9
== END 2022-12-26 13:37 | disposition home or self-care (01) ==
LOC: FINFUSION 11:48 → FM/S 11:48 → FINFUSION 13:37
PROVIDERS: ATTEND Internal Medicine
DX: M86.9 Osteomyelitis, unspecified (principal)
CPT/HCPCS: 96365

== ENCOUNTER 2022-12-27 12:51 | Day surgery (SDC) | payer OTHER ==
[2022-12-27] MEDS ORDERED: CEFTRIAXONE 2 GM in DEXTROSE 5%-WATER 100 ML IVPB ONE (14:00)
[2022-12-27 14:08] VITALS: BP 110/70; PULSE 98; RESP 18; TEMP 98.2
== END 2022-12-27 14:08 | disposition home or self-care (01) ==
LOC: FINFUSION 12:51 → FM/S 12:53 → FINFUSION 14:08
PROVIDERS: ATTEND Internal Medicine
DX: M86.9 Osteomyelitis, unspecified (principal)
CPT/HCPCS: 96365

== ENCOUNTER 2022-12-28 11:50 | Day surgery (SDC) | payer OTHER ==
[2022-12-28] MEDS ORDERED: CEFTRIAXONE 2 GM in DEXTROSE 5%-WATER 100 ML IVPB ONE (12:15)
[2022-12-28 12:54] VITALS: BP 120/70; PULSE 90; RESP 17; TEMP 8.1
== END 2022-12-28 12:55 | disposition home or self-care (01) ==
LOC: FINFUSION 11:50 → FM/S 11:51 → FINFUSION 12:55
PROVIDERS: ATTEND Internal Medicine
DX: M86.9 Osteomyelitis, unspecified (principal)
CPT/HCPCS: 96365

== ENCOUNTER 2022-12-29 11:21 | Day surgery (SDC) | payer OTHER ==
[2022-12-29 11:47] VITALS: RESP 18; TEMP 97.9
[2022-12-29] MEDS ORDERED: CEFTRIAXONE 2 GM in DEXTROSE 5%-WATER 100 ML IVPB ONE (13:00)
[2022-12-29 13:17] VITALS: BP 116/80; PULSE 86
[2022-12-29 14:17] LABS: HEMATOCRIT 42.5 % (35.4-49); HEMOGLOBIN 14.7 G/dL (11.7-16.9); MCH 32.8 pg (25.7-33.7); MCHC 34.6 g/dl (32.0-35.9); MEAN CELL VOLUME 94.7 fl (80-96); MEAN PLT VOLUME 8.9 fl (7.5-11.1); PLATELET COUNT 358.6 10^3/uL (134-434); RBC 4.49 10^6/uL (4.00-5.60); RDW 13.3 % (11.9-15.9); WHITE BLOOD COUNT 6.9 10^3/uL (4.0-10.8)
[2022-12-29 14:56] LABS: ALBUMIN 4.2 g/dl (3.4-5.0); ALK PHOS 47 U/L (45-117); ANION GAP 11 MMOL/L (8-16); BILIRUBIN,TOTAL 0.5 mg/dl (0.2-1); CALCIUM 9.6 mg/dl (8.5-10); CHLORIDE 104 mmol/L (98-107); CO2 27 mmol/L (21-32); GLUCOSE,RANDOM 106 mg/dl (74-106); SGOT/AST 48 U/L (15-37); SGPT/ALT 121 U/L (13-61); SODIUM 142 mmol/L (136-145)
== END 2022-12-29 13:40 | disposition home or self-care (01) ==
LOC: FINFUSION 11:21 → FM/S 11:23 → FINFUSION 13:40
PROVIDERS: ATTEND Internal Medicine
DX: M86.9 Osteomyelitis, unspecified (principal)
CPT/HCPCS: 36415; 80053; 85027; 86140; 96365

== ENCOUNTER 2022-12-30 11:32 | Day surgery (SDC) | payer OTHER ==
[2022-12-30 11:58] VITALS: RESP 18; TEMP 98.1
[2022-12-30] MEDS ORDERED: CEFTRIAXONE 2 GM in DEXTROSE 5%-WATER 100 ML IVPB ONE (12:00)
[2022-12-30 13:31] VITALS: BP 126/80; PULSE 86
== END 2022-12-30 13:32 | disposition home or self-care (01) ==
LOC: FINFUSION 11:32 → FM/S 11:35 → FINFUSION 13:32
PROVIDERS: ATTEND Internal Medicine
DX: M86.9 Osteomyelitis, unspecified (principal)
CPT/HCPCS: 96365

== ENCOUNTER 2022-12-31 11:43 | Day surgery (SDC) | payer OTHER ==
[2022-12-31] MEDS ORDERED: CEFTRIAXONE 2 GM in DEXTROSE 5%-WATER 100 ML IVPB ONE (12:00)
[2022-12-31 12:48] VITALS: BP 119/72; PULSE 101; RESP 18; TEMP 98.3
== END 2022-12-31 13:06 | disposition home or self-care (01) ==
LOC: FINFUSION 11:43 → FM/S 11:44 → FINFUSION 13:06
PROVIDERS: ATTEND Internal Medicine
PROC: 3E033GC Introduction of Other Therapeutic Substance into Peripheral Vein, Percutaneous Approach (ICD-10-PCS; principal; 2022-12-31)
DX: M86.9 Osteomyelitis, unspecified (principal)
CPT/HCPCS: 96365

== ENCOUNTER 2023-01-01 11:36 | Day surgery (SDC) | payer OTHER ==
[2023-01-01] MEDS ORDERED: CEFTRIAXONE 2 GM in SODIUM CHLORIDE 100 ML IVPB SCH (12:00)
[2023-01-01 13:15] VITALS: BP 127/67; PULSE 89; RESP 18; TEMP 97.9
== END 2023-01-01 13:15 | disposition home or self-care (01) ==
LOC: FINFUSION 11:36 → FM/S 11:37 → FINFUSION 13:15
PROVIDERS: ATTEND Internal Medicine
DX: M86.9 Osteomyelitis, unspecified (principal)
CPT/HCPCS: 96365

== ENCOUNTER 2023-01-02 11:39 | Day surgery (SDC) | payer OTHER ==
[2023-01-02] MEDS ORDERED: CEFTRIAXONE 2 GM in DEXTROSE 5%-WATER 100 ML IVPB ONE (12:00)
[2023-01-02 12:39] VITALS: BP 112/70; PULSE 78; RESP 18; TEMP 97.9
== END 2023-01-02 12:40 | disposition home or self-care (01) ==
LOC: FINFUSION 11:39 → FM/S 11:45 → FINFUSION 12:40
PROVIDERS: ATTEND Internal Medicine
DX: M86.9 Osteomyelitis, unspecified (principal)
CPT/HCPCS: 96365

== ENCOUNTER 2023-01-03 11:43 | Day surgery (SDC) | payer OTHER ==
[2023-01-03] MEDS ORDERED: CEFTRIAXONE 2 GM in DEXTROSE 5%-WATER 100 ML IVPB ONE (12:10)
[2023-01-03 13:32] VITALS: BP 116/85; PULSE 68; RESP 18; TEMP 98.5
== END 2023-01-03 13:32 | disposition home or self-care (01) ==
LOC: FINFUSION 11:43 → FM/S 11:45 → FINFUSION 13:32
PROVIDERS: ATTEND Internal Medicine
DX: M86.9 Osteomyelitis, unspecified (principal)
CPT/HCPCS: 96365

== ENCOUNTER 2023-01-04 11:33 | Day surgery (SDC) | payer OTHER ==
[2023-01-04] MEDS ORDERED: CEFTRIAXONE 2 GM in DEXTROSE 5%-WATER 100 ML IVPB ONE (12:00)
[2023-01-04 13:17] VITALS: BP 120/75; PULSE 99; RESP 18; TEMP 98
== END 2023-01-04 13:16 | disposition home or self-care (01) ==
LOC: FINFUSION 11:33 → FM/S 11:35 → FINFUSION 13:16
PROVIDERS: ATTEND Internal Medicine
DX: M86.9 Osteomyelitis, unspecified (principal)
CPT/HCPCS: 96365

== ENCOUNTER 2023-01-05 11:20 | Day surgery (SDC) | payer OTHER ==
[2023-01-05 11:49] LABS: HEMATOCRIT 40.7 % (35.4-49); HEMOGLOBIN 14.5 G/dL (11.7-16.9); MCH 33.9 pg (25.7-33.7); MCHC 35.6 g/dl (32.0-35.9); MEAN CELL VOLUME 95.2 fl (80-96); RBC 4.28 10^6/uL (4.00-5.60); RDW 13.1 % (11.9-15.9); WHITE BLOOD COUNT 5.2 10^3/uL (4.0-10.8)
[2023-01-05] MEDS ORDERED: CEFTRIAXONE 2 GM in SODIUM CHLORIDE 100 ML IVPB ONE (13:00)
[2023-01-05 13:06] LABS: ALBUMIN 4.4 g/dl (3.4-5.0); ALK PHOS 44 U/L (45-117); ANION GAP 9 MMOL/L (8-16); BILIRUBIN,TOTAL 0.4 mg/dl (0.2-1); BLOOD UREA NITROGEN 17.5 mg/dl (7-18); CALCIUM 9.4 mg/dl (8.5-10.1); CHLORIDE 104 mmol/L (98-107); CO2 28 mmol/L (21-32); CREATININE 1.2 mg/dl (0.6-1.3); GLUCOSE,RANDOM 123 mg/dl (74-106); POTASSIUM 4.8 mmol/L (3.5-5.1); SGPT/ALT 53.4 U/L (7-52); SODIUM 141 mmol/L (136-145)
[2023-01-05 13:44] VITALS: BP 127/54; PULSE 63; RESP 18; TEMP 97.8
== END 2023-01-05 13:30 | disposition home or self-care (01) ==
LOC: FINFUSION 11:20 → FM/S 11:21 → FINFUSION 13:30
PROVIDERS: ATTEND Internal Medicine
DX: M86.9 Osteomyelitis, unspecified (principal)
CPT/HCPCS: 36415; 80053; 85027; 86140; 96365

== ENCOUNTER 2023-01-06 11:56 | Day surgery (SDC) | payer OTHER ==
[2023-01-06] MEDS ORDERED: CEFTRIAXONE 2 GM in SODIUM CHLORIDE 100 ML IVPB ONE (12:15)
[2023-01-06 16:51] VITALS: BP 122/75; PULSE 90; RESP 18; TEMP 97.8
== END 2023-01-06 14:12 | disposition home or self-care (01) ==
LOC: FINFUSION 11:56 → FM/S 11:56 → FINFUSION 14:12
PROVIDERS: ATTEND Internal Medicine
DX: M86.9 Osteomyelitis, unspecified (principal)
CPT/HCPCS: 96365

== ENCOUNTER 2023-01-07 11:48 | Day surgery (SDC) | payer OTHER ==
[2023-01-07] MEDS ORDERED: CEFTRIAXONE 2 GM in SODIUM CHLORIDE 100 ML IVPB ONE (12:15)
[2023-01-07 18:00] VITALS: BP 115/70; PULSE 86; RESP 18; TEMP 98.4
== END 2023-01-07 13:55 | disposition home or self-care (01) ==
LOC: FINFUSION 11:48 → FM/S 11:49 → FINFUSION 13:55
PROVIDERS: ATTEND Internal Medicine
DX: M86.9 Osteomyelitis, unspecified (principal)
CPT/HCPCS: 96365

== ENCOUNTER 2023-01-08 11:51 | Day surgery (SDC) | payer OTHER ==
[2023-01-08] MEDS ORDERED: CEFTRIAXONE 2 GM in SODIUM CHLORIDE 100 ML IVPB SCH (12:30)
[2023-01-08 12:45] VITALS: RESP 18; TEMP 98
[2023-01-08 14:00] VITALS: BP 112/62; PULSE 86
== END 2023-01-08 13:00 | disposition home or self-care (01) ==
LOC: FINFUSION 11:51 → FM/S 12:15 → FINFUSION 13:00
PROVIDERS: ATTEND Internal Medicine
DX: M86.9 Osteomyelitis, unspecified (principal)
CPT/HCPCS: 96365

== ENCOUNTER 2023-01-09 11:55 | Day surgery (SDC) | payer OTHER ==
[2023-01-09] MEDS ORDERED: CEFTRIAXONE 2 GM in DEXTROSE 5%-WATER 100 ML IVPB ONE (13:00)
[2023-01-09 13:11] VITALS: RESP 18; TEMP 98.2
[2023-01-09 13:24] VITALS: BP 120/72; PULSE 90
== END 2023-01-09 13:30 | disposition home or self-care (01) ==
LOC: FINFUSION 11:55 → FM/S 11:59 → FINFUSION 13:30
PROVIDERS: ATTEND Internal Medicine
DX: M86.9 Osteomyelitis, unspecified (principal)
CPT/HCPCS: 96365

== ENCOUNTER 2023-01-10 11:56 | Day surgery (SDC) | payer OTHER ==
[2023-01-10] MEDS ORDERED: CEFTRIAXONE 2 GM in SODIUM CHLORIDE 100 ML IVPB ONE (12:00)
[2023-01-10 12:40] VITALS: BP 115/65; PULSE 89; RESP 18; TEMP 98.9
== END 2023-01-10 12:42 | disposition home or self-care (01) ==
LOC: FINFUSION 11:56 → FM/S 11:59 → FINFUSION 12:42
PROVIDERS: ATTEND Internal Medicine
DX: M86.9 Osteomyelitis, unspecified (principal)
CPT/HCPCS: 96365

== ENCOUNTER 2023-01-11 11:49 | Day surgery (SDC) | payer OTHER ==
[2023-01-11] MEDS ORDERED: CEFTRIAXONE 2 GM in SODIUM CHLORIDE 100 ML IVPB ONE (12:00)
[2023-01-11 12:51] VITALS: BP 122/69; PULSE 95; RESP 18; TEMP 98.4
== END 2023-01-11 13:08 | disposition home or self-care (01) ==
LOC: FINFUSION 11:49 → FM/S 11:49 → FINFUSION 13:08
PROVIDERS: ATTEND Internal Medicine
DX: M86.9 Osteomyelitis, unspecified (principal)
CPT/HCPCS: 96365

== ENCOUNTER 2023-01-12 11:18 | Day surgery (SDC) | payer OTHER ==
[2023-01-12 11:52] LABS: HEMATOCRIT 47.6 % (35.4-49); HEMOGLOBIN 15.8 G/dL (11.7-16.9); MCH 31.5 pg (25.7-33.7); MCHC 33.2 g/dl (32.0-35.9); MEAN CELL VOLUME 94.6 fl (80-96); MEAN PLT VOLUME 8.7 fl (7.5-11.1); PLATELET COUNT 171.3 10^3/uL (134-434); RBC 5.03 10^6/uL (4.00-5.60); RDW 13.3 % (11.9-15.9)
[2023-01-12 12:12] LABS: ALBUMIN 4.8 g/dl (3.4-5.0); ANION GAP 7 MMOL/L (8-16); BILIRUBIN,TOTAL 0.4 mg/dl (0.2-1); BLOOD UREA NITROGEN 23.5 mg/dl (7-18); CALCIUM 10.1 mg/dl (8.5-10.1); CHLORIDE 104 mmol/L (98-107); CO2 29 mmol/L (21-32); CREATININE 0.9 mg/dl (0.6-1.3); GLUCOSE,RANDOM 61 mg/dl (74-106); POTASSIUM 4.4 mmol/L (3.5-5.1); SGOT/AST 39.5 U/L (15-37); SODIUM 140 mmol/L (136-145); TOT PROT 7.3 g/dl (6.4-8.2)
[2023-01-12 12:13] LABS: ALK PHOS 48 U/L (45-117); SGPT/ALT 49.7 U/L (7-52)
[2023-01-12] MEDS ORDERED: CEFTRIAXONE 2 GM in SODIUM CHLORIDE 100 ML IVPB ONE (12:30)
[2023-01-12 13:19] VITALS: BP 112/72; PULSE 86; RESP 18; TEMP 98.3
== END 2023-01-12 13:36 | disposition home or self-care (01) ==
LOC: FINFUSION 11:18 → FM/S 12:10 → FINFUSION 13:36
PROVIDERS: ATTEND Internal Medicine
DX: M86.9 Osteomyelitis, unspecified (principal)
CPT/HCPCS: 36415; 80053; 85027; 86140; 96365

== ENCOUNTER 2023-01-13 12:05 | Day surgery (SDC) | payer OTHER ==
[2023-01-13] MEDS ORDERED: CEFTRIAXONE 2 GM in DEXTROSE 5%-WATER 100 ML IVPB ONE (12:45)
[2023-01-13 13:21] VITALS: BP 134/87; PULSE 85; RESP 18; TEMP 98.1
== END 2023-01-13 13:21 | disposition home or self-care (01) ==
LOC: FINFUSION 12:05 → FM/S 12:05 → FINFUSION 13:21
PROVIDERS: ATTEND Internal Medicine
DX: M86.9 Osteomyelitis, unspecified (principal)
CPT/HCPCS: 96365

== ENCOUNTER 2023-01-14 12:03 | Day surgery (SDC) | payer OTHER ==
[2023-01-14] MEDS ORDERED: CEFTRIAXONE 2 GM in SODIUM CHLORIDE 100 ML IVPB ONE (12:15)
[2023-01-14 13:07] VITALS: BP 124/56; PULSE 67; RESP 18; TEMP 97.9
== END 2023-01-14 13:16 | disposition home or self-care (01) ==
LOC: FINFUSION 12:03 → FM/S 12:03 → FINFUSION 13:16
PROVIDERS: ATTEND Internal Medicine
DX: M86.9 Osteomyelitis, unspecified (principal)
CPT/HCPCS: 96365

== ENCOUNTER 2023-01-15 11:41 | Day surgery (SDC) | payer OTHER ==
[2023-01-15] MEDS ORDERED: CEFTRIAXONE 2 GM in SODIUM CHLORIDE 100 ML IVPB ONE (12:00)
[2023-01-15] MEDS ORDERED: SODIUM CHLORIDE 100 ML IVPB ONE ×2 (12:02→12:12)
[2023-01-15 12:21] VITALS: RESP 20; TEMP 98.4
[2023-01-15 12:52] VITALS: BP 122/71; PULSE 70
== END 2023-01-15 12:53 | disposition home or self-care (01) ==
LOC: FINFUSION 11:41 → FM/S 11:41 → FINFUSION 12:53
PROVIDERS: ATTEND Internal Medicine
DX: M86.9 Osteomyelitis, unspecified (principal)
CPT/HCPCS: 96365

== ENCOUNTER 2023-01-16 11:50 | Day surgery (SDC) | payer OTHER ==
[2023-01-16] MEDS ORDERED: CEFTRIAXONE 2 GM in DEXTROSE 5%-WATER 100 ML IVPB ONE (12:30)
[2023-01-16 12:35] VITALS: RESP 16; TEMP 98
[2023-01-16 13:12] VITALS: BP 118/78; PULSE 92
== END 2023-01-16 13:13 | disposition home or self-care (01) ==
LOC: FINFUSION 11:50 → FM/S 11:51 → FINFUSION 13:13
PROVIDERS: ATTEND Internal Medicine
DX: M86.9 Osteomyelitis, unspecified (principal)
CPT/HCPCS: 96365

== ENCOUNTER 2023-01-17 11:39 | Day surgery (SDC) | payer OTHER ==
[2023-01-17] MEDS ORDERED: CEFTRIAXONE 2 GM in SODIUM CHLORIDE 100 ML IVPB ONE (11:45)
[2023-01-17 20:22] VITALS: BP 130/77; PULSE 95; RESP 18; TEMP 98.4
== END 2023-01-17 13:01 | disposition home or self-care (01) ==
LOC: FINFUSION 11:39 → FM/S 11:39 → FINFUSION 13:01
PROVIDERS: ATTEND Internal Medicine
DX: M86.9 Osteomyelitis, unspecified (principal)
CPT/HCPCS: 96365

== ENCOUNTER 2023-01-18 11:55 | Day surgery (SDC) | payer OTHER ==
[2023-01-18] MEDS ORDERED: CEFTRIAXONE 2 GM in SODIUM CHLORIDE 100 ML IVPB ONE (12:15)
[2023-01-18 12:56] VITALS: BP 118/76; PULSE 99; RESP 18; TEMP 98.5
== END 2023-01-18 12:57 | disposition home or self-care (01) ==
LOC: FINFUSION 11:55 → FM/S 11:56 → FINFUSION 12:57
PROVIDERS: ATTEND Internal Medicine
DX: M86.9 Osteomyelitis, unspecified (principal)
CPT/HCPCS: 96365

== ENCOUNTER 2023-01-19 12:20 | Day surgery (SDC) | payer OTHER ==
[2023-01-19] MEDS ORDERED: CEFTRIAXONE 2 GM in SODIUM CHLORIDE 100 ML IVPB ONE (12:30)
[2023-01-19 14:14] VITALS: RESP 18
[2023-01-19 14:45] VITALS: BP 120/72; PULSE 90; TEMP 98.3
[2023-01-19 15:59] LABS: HEMOGLOBIN 14.9 GM/dL (11.7-16.9); MCH 30.9 pg (25.7-33.7); MCHC 33.8 g/dl (32.0-35.9); MEAN CELL VOLUME 91.3 fl (80-96); MEAN PLT VOLUME 8.7 fl (7.5-11.1); PLATELET COUNT 184 10^3/uL (134-434); RBC 4.82 M/mm3 (4.00-5.60); RDW 13.1 % (11.9-15.9); WHITE BLOOD COUNT 2.8 K/mm3 (4.0-10.0)
[2023-01-19 16:30] LABS: POTASSIUM 4.7 mmol/L (3.5-5.1)
[2023-01-19 16:32] LABS: ALBUMIN 4.4 g/dl (3.4-5.0); BLOOD UREA NITROGEN 21.2 mg/dL (7-18)
[2023-01-19 16:37] LABS: BILIRUBIN,TOTAL 0.5 mg/dL (0.2-1)
== END 2023-01-19 14:46 | disposition home or self-care (01) ==
LOC: FINFUSION 12:20 → FM/S 12:21 → FINFUSION 14:46
PROVIDERS: ATTEND Internal Medicine
DX: M86.9 Osteomyelitis, unspecified (principal)
CPT/HCPCS: 36415; 80053; 85027; 86140; 96365

== ENCOUNTER 2023-01-22 12:26 | Day surgery (SDC) | payer OTHER ==
[2023-01-22] MEDS ORDERED: CEFTRIAXONE 2 GM in SODIUM CHLORIDE 100 ML IVPB SCH (12:45)
[2023-01-22 13:43] VITALS: BP 133/80; PULSE 100; RESP 18; TEMP 98.3
== END 2023-01-22 13:40 | disposition home or self-care (01) ==
LOC: FM/S 12:26 → FINFUSION 12:26
PROVIDERS: ATTEND Internal Medicine
DX: M86.9 Osteomyelitis, unspecified (principal)
CPT/HCPCS: 96365

== ENCOUNTER 2023-01-24 12:08 | Day surgery (SDC) | payer OTHER ==
[2023-01-24] MEDS ORDERED: CEFTRIAXONE 2 GM in DEXTROSE 5%-WATER 100 ML IVPB ONE (12:30)
[2023-01-24 13:30] VITALS: BP 128/77; PULSE 90; RESP 18; TEMP 97.8
== END 2023-01-24 13:30 | disposition home or self-care (01) ==
LOC: FINFUSION 12:08 → FM/S 12:09 → FINFUSION 13:30
PROVIDERS: ATTEND Internal Medicine
DX: M86.9 Osteomyelitis, unspecified (principal)
CPT/HCPCS: 96365

== ENCOUNTER 2023-01-25 11:21 | Day surgery (SDC) | payer OTHER ==
[2023-01-25] MEDS ORDERED: CEFTRIAXONE 2 GM in SODIUM CHLORIDE 100 ML IVPB ONE (11:30)
[2023-01-25 12:19] VITALS: BP 128/86; PULSE 89; RESP 18; TEMP 97.8
== END 2023-01-25 12:19 | disposition home or self-care (01) ==
LOC: FINFUSION 11:21 → FM/S 11:24 → FINFUSION 12:19
PROVIDERS: ATTEND Internal Medicine
DX: M86.9 Osteomyelitis, unspecified (principal)
CPT/HCPCS: 96365

== ENCOUNTER 2023-01-26 11:39 | Day surgery (SDC) | payer OTHER ==
[2023-01-26] MEDS ORDERED: CEFTRIAXONE 2 GM in SODIUM CHLORIDE 100 ML IVPB ONE (12:15)
[2023-01-26 12:29] VITALS: RESP 16; TEMP 98.9
[2023-01-26 13:17] VITALS: BP 123/87; PULSE 86
[2023-01-26 14:07] LABS: HEMATOCRIT 46.3 % (35.4-49); HEMOGLOBIN 15.6 G/dL (11.7-16.9); MCH 31.3 pg (25.7-33.7); MCHC 33.8 g/dl (32.0-35.9); MEAN CELL VOLUME 92.8 fl (80-96); MEAN PLT VOLUME 8.8 fl (7.5-11.1); RBC 4.99 10^6/uL (4.00-5.60); RDW 13.1 % (11.9-15.9); WHITE BLOOD COUNT 4.2 10^3/uL (4.0-10.8)
[2023-01-26 14:23] LABS: ALBUMIN 4.7 g/dl (3.4-5.0); ALK PHOS 43 U/L (45-117); ANION GAP 10 MMOL/L (8-16); BILIRUBIN,TOTAL 0.4 mg/dl (0.2-1); BLOOD UREA NITROGEN 17.8 mg/dl (7-18); CALCIUM 9.8 mg/dl (8.5-10.1); CHLORIDE 103 mmol/L (98-107); CO2 27 mmol/L (21-32); CREATININE 0.9 mg/dl (0.6-1.3); GLUCOSE,RANDOM 115 mg/dl (74-106); POTASSIUM 4.9 mmol/L (3.5-5.1); SGOT/AST 23.5 U/L (15-37); SGPT/ALT 24.7 U/L (7-52); SODIUM 140 mmol/L (136-145); TOT PROT 7.4 g/dl (6.4-8.2)
== END 2023-01-26 13:17 | disposition home or self-care (01) ==
LOC: FINFUSION 11:39 → FM/S 11:41 → FINFUSION 13:17
PROVIDERS: ATTEND Internal Medicine
DX: M86.9 Osteomyelitis, unspecified (principal)
CPT/HCPCS: 36415; 80053; 85027; 86140; 96365

== ENCOUNTER 2024-05-23 18:27 | Inpatient (IN) | payer OTHER ==
[2024-05-23 20:42] LABS: BASO % 1.2 % (0-2.0); EOS % 1.6 % (0-4.5); HEMATOCRIT 38.6 % (35.4-49); HEMOGLOBIN 13.3 GM/dL (11.7-16.9); LYMPH % 17.4 % (8-40); MCH 30.6 pg (25.7-33.7); MCHC 34.5 g/dl (32.0-35.9); MEAN CELL VOLUME 88.6 fl (80-96); MEAN PLT VOLUME 8.7 fl (7.5-11.1); MONO % 8.1 % (3.8-10.2); NEUT % 71.7 % (42.8-82.8); PLATELET COUNT 231 10^3/uL (134-434); RBC 4.36 M/mm3 (4.00-5.60); RDW 12.2 % (11.9-15.9); WHITE BLOOD COUNT 8.5 K/mm3 (4.0-10.0)
[2024-05-23 20:54] LABS: INR 0.95 (0.83-1.09); PROTHROMBIN TIME (PATIENT) 10.7 SEC (9.7-13.0)
[2024-05-23 21:00] LABS: POTASSIUM 3.7 mmol/L (3.5-5.1)
[2024-05-23 21:02] LABS: ALBUMIN 3.5 g/dl (3.4-5.0); CALCIUM 9.2 mg/dL (8.5-10.1)
[2024-05-23 21:06] LABS: CREATININE 1.1 mg/dL (0.55-1.3)
[2024-05-23 21:07] LABS: BILIRUBIN,TOTAL 0.4 mg/dL (0.2-1); TOT PROT 7.2 g/dl (6.4-8.2)
[2024-05-23 21:08] LABS: BLOOD UREA NITROGEN 16.4 mg/dL (7-18)
[2024-05-23] MEDS ORDERED: PIPERACILLIN/TAZOB 3.375 GM 3.375 GM/50 ML BAG IVPB ONE (21:24)
[2024-05-23 21:26] LABS: ERYTHROCYTE SEDIMENTATION RATE 78 mm/hr (0-10)
[2024-05-23] MEDS: PIPERACILLIN/TAZOB 3.375 GM 3.375 GM in DEXTROSE 5%-WATER - 50 ML IVPB ONE (21:31)
[2024-05-23] MEDS ORDERED: VANCOMYCIN 1 GRAM (PRE-DOCKED) 1,000 MG/250 ML BAG IVPB ONE (21:52)
[2024-05-23] MEDS: VANCOMYCIN 1,000 MG in DEXTROSE 5%-WATER - 250 ML IVPB ONE (22:00)
[2024-05-24 03:36] VITALS: BMI 31.0
[2024-05-24] MEDS: PIPERACILLIN/TAZOB 3.375 GM 50 ML IVPB SCH (06:46)
[2024-05-24] MEDS: INSULIN ASPART SLIDING SCALE (NOVOLOG) 1 VIAL SQ SCH (06:46)
[2024-05-24] MEDS: ENOXAPARIN NA (PORCINE) 40 MG/0.4 ML DISP.SYRIN SQ SCH (10:34)
[2024-05-25 12:13] LABS: HEMATOCRIT 38.4 % (35.4-49); HEMOGLOBIN 12.9 GM/dL (11.7-16.9); MCH 30.6 pg (25.7-33.7); MCHC 33.6 g/dl (32.0-35.9); MEAN CELL VOLUME 90.9 fl (80-96); PLATELET COUNT 210 10^3/uL (134-434); RBC 4.22 M/mm3 (4.00-5.60); RDW 12.7 % (11.9-15.9); WHITE BLOOD COUNT 5.1 K/mm3 (4.0-10.0)
[2024-05-25 12:14] LABS: BASO % 0.9 % (0-2.0); EOS % 3.6 % (0-4.5); LYMPH % 21.9 % (8-40); MEAN PLT VOLUME 8.9 fl (7.5-11.1); MONO % 7.2 % (3.8-10.2); NEUT % 66.4 % (42.8-82.8)
[2024-05-25 12:27] LABS: POTASSIUM 4.5 mmol/L (3.5-5.1)
[2024-05-25 12:32] LABS: ALBUMIN 2.8 g/dl (3.4-5.0); BLOOD UREA NITROGEN 13.9 mg/dL (7-18)
[2024-05-25 12:35] LABS: CREATININE 0.9 mg/dL (0.55-1.3)
[2024-05-25 12:37] LABS: BILIRUBIN,TOTAL 0.4 mg/dL (0.2-1); TOT PROT 6.3 g/dl (6.4-8.2)
[2024-05-25] MEDS: ARTIFICIAL TEARS OPHTHALMIC DROPS OU PRN (22:03)
[2024-05-26] MEDS ORDERED: ACETAMINOPHEN 500 MG TABLET (FP) PO PRN (11:33)
[2024-05-26] MEDS: VANCOMYCIN/WATER FOR INJ (PEG) 1,000 MG/200 ML BAG IVPB SCH (14:04)
[2024-05-26] MEDS: PIPERACILLIN/TAZOB 3.375 GM 50 ML IVPB SCH (17:50)
[2024-05-26] MEDS: PIPERACILLIN/TAZOB 3.375 GM 3.375 GM in DEXTROSE 5%-WATER - 50 ML IVPB SCH (19:12)
[2024-05-27] MEDS: PIPERACILLIN/TAZOB 3.375 GM 3.375 GM in DEXTROSE 5%-WATER - 50 ML IVPB SCH (00:11)
[2024-05-27 10:02] LABS: INR 0.95 (0.83-1.09); PROTHROMBIN TIME (PATIENT) 10.8 SEC (9.7-13.0)
[2024-05-28] MEDS ORDERED: DEXTROSE 50%-WATER 25 GM/50 ML DISP.SYRIN ONE (05:05)
[2024-05-28] MEDS: DEXTROSE 50%-WATER - 25 GM/50 ML VIAL IVPUSH ONE (05:12)
[2024-05-28] MEDS: DEXTROSE 50%-WATER 25 GM/50 ML DISP.SYRIN IVPUSH ONE (06:24)
[2024-05-28] MEDS: DEXTROSE 5%-0.45% SALINE 1,000 ML IV SCH ×2 (09:15→18:23)
[2024-05-28 12:06] LABS: HEMATOCRIT 38.5 % (35.4-49); HEMOGLOBIN 13.2 GM/dL (11.7-16.9); MCH 30.7 pg (25.7-33.7); MCHC 34.1 g/dl (32.0-35.9); MEAN CELL VOLUME 89.9 fl (80-96); MEAN PLT VOLUME 8.5 fl (7.5-11.1); PLATELET COUNT 242 10^3/uL (134-434); RBC 4.29 M/mm3 (4.00-5.60); RDW 12.4 % (11.9-15.9); WHITE BLOOD COUNT 6.5 K/mm3 (4.0-10.0)
[2024-05-28 12:11] LABS: INR 0.93 (0.83-1.09); PROTHROMBIN TIME (PATIENT) 10.7 SEC (9.7-13.0)
[2024-05-28 12:28] LABS: POTASSIUM 4.6 mmol/L (3.5-5.1)
[2024-05-28 12:33] LABS: BLOOD UREA NITROGEN 17.5 mg/dL (7-18); CALCIUM 9.1 mg/dL (8.5-10.1); MAGNESIUM 2.2 mg/dL (1.8-2.4)
[2024-05-28 12:36] LABS: CREATININE 1.1 mg/dL (0.55-1.3); PHOSPHOROUS 3.2 mg/dL (2.5-4.9)
[2024-05-28] MEDS ORDERED: BUPIVACAINE HCL/PF 0.5% (5MG/ML) 10 ML VIAL ONE (14:50)
[2024-05-28] MEDS ORDERED: LIDOCAINE HCL 1%, 10 MG/ML (20ML VIAL) ONE (14:50)
[2024-05-28] MEDS ORDERED: VANCOMYCIN 1,000 MG VIAL (RESTRICTED TO ID ONLY) ONE (14:50)
[2024-05-28] MEDS ORDERED: GENTAMICIN SO4 80 MG/2 ML VIAL ONE (15:17)
[2024-05-28] MEDS ORDERED: LIDOCAINE HCL/PF 2% SDV 5ML VIAL ONE (15:39)
[2024-05-28] MEDS ORDERED: PROPOFOL 20 ML ONE ×2 (15:39→16:08)
[2024-05-28] MEDS ORDERED: MIDAZOLAM HCL 2 MG/2 ML SINGLE DOSE VIAL ONE (15:39)
[2024-05-28] MEDS: BUPIVACAINE HCL/PF 0.5% (5MG/ML) 10 ML VIAL IJ ONE ×2 (15:50)
[2024-05-28] MEDS: LIDOCAINE HCL 1%, 10 MG/ML (20ML VIAL) NR ONE ×2 (15:50)
[2024-05-28] MEDS ORDERED: ACETAMINOPHEN 500 MG TABLET (FP) PO PRN (16:48)
[2024-05-28] MEDS ORDERED: PROMETHAZINE HCL 25 MG/1 ML VIAL IVPB PRN (17:08)
[2024-05-28] MEDS ORDERED: ONDANSETRON 4 MG/2 ML VIAL IVPUSH PRN (17:08)
[2024-05-28] MEDS ORDERED: LACTATED RINGERS SOLUTION 1,000 ML IV SCH ×2 (17:15)
[2024-05-28] MEDS: KETOROLAC TROMETHAMINE 30 MG/1 ML VIAL IVPUSH ONE (17:20)
[2024-05-28] MEDS: ACETAMINOPHEN 1000 MG/100 ML BAG IVPB ONE (17:21)
[2024-05-28] MEDS ORDERED: INSULIN ASPART SLIDING SCALE (NOVOLOG) 1 VIAL SQ ONE (18:20)
[2024-05-28] MEDS: INSULIN ASPART SLIDING SCALE (NOVOLOG) 1 VIAL SQ SCH (18:22)
[2024-05-28] MEDS: PIPERACILLIN/TAZOB 3.375 GM 50 ML IVPB SCH (18:28)
[2024-05-28 22:52] VITALS: RESP 18
[2024-05-29] MEDS: VANCOMYCIN/WATER FOR INJ (PEG) 1,000 MG/200 ML BAG IVPB SCH (01:01)
[2024-05-29 09:28] LABS: BASO % 0.8 % (0-2.0); EOS % 2.1 % (0-4.5); HEMATOCRIT 34.9 % (35.4-49); LYMPH % 14.7 % (8-40); MCH 30.9 pg (25.7-33.7); MCHC 34.3 g/dl (32.0-35.9); MEAN PLT VOLUME 8.1 fl (7.5-11.1); MONO % 6.9 % (3.8-10.2); NEUT % 75.5 % (42.8-82.8); PLATELET COUNT 230 10^3/uL (134-434); RBC 3.88 M/mm3 (4.00-5.60); RDW 12.2 % (11.9-15.9)
[2024-05-29 09:44] LABS: POTASSIUM 4.1 mmol/L (3.5-5.1)
[2024-05-29 09:52] LABS: ALBUMIN 2.7 g/dl (3.4-5.0); BILIRUBIN,TOTAL 0.3 mg/dL (0.2-1); BLOOD UREA NITROGEN 15.6 mg/dL (7-18); CALCIUM 8.2 mg/dL (8.5-10.1)
[2024-05-29 09:54] LABS: CREATININE 1.1 mg/dL (0.55-1.3)
[2024-05-29] MEDS: INSULIN (LEVEMIR) 100 UNITS/ML UNITS SQ SCH (10:27)
[2024-05-30] MEDS: INSULIN (LEVEMIR) 100 UNITS/ML UNITS SQ ONE (08:16)
[2024-05-30] MEDS: ARTIFICIAL TEARS OPHTHALMIC DROPS OU PRN (09:53)
[2024-05-30] MEDS: ENOXAPARIN NA (PORCINE) 40 MG/0.4 ML DISP.SYRIN SQ SCH (09:54)
[2024-05-30 09:55] LABS: POTASSIUM 4.4 mmol/L (3.5-5.1)
[2024-05-30 10:06] LABS: BILIRUBIN,TOTAL 0.3 mg/dL (0.2-1); TOT PROT 6.3 g/dl (6.4-8.2)
[2024-05-30 10:11] LABS: ALBUMIN 2.9 g/dl (3.4-5.0); CALCIUM 8.5 mg/dL (8.5-10.1)
[2024-05-30 10:13] LABS: CREATININE 0.9 mg/dL (0.55-1.3)
[2024-05-30] MEDS: INSULIN (LEVEMIR) 100 UNITS/ML UNITS SQ SCH (22:26)
[2024-05-30] MEDS: ATORVASTATIN CA 20 MG TABLET (FP) PO SCH (22:26)
[2024-05-31 09:02] LABS: BASO % 0.9 % (0-2.0); HEMATOCRIT 37.8 % (35.4-49); HEMOGLOBIN 12.8 GM/dL (11.7-16.9); LYMPH % 26.8 % (8-40); MCH 30.5 pg (25.7-33.7); MCHC 33.9 g/dl (32.0-35.9); MEAN CELL VOLUME 89.8 fl (80-96); MEAN PLT VOLUME 8.4 fl (7.5-11.1); MONO % 10.2 % (3.8-10.2); NEUT % 59.1 % (42.8-82.8); PLATELET COUNT 253 10^3/uL (134-434); RBC 4.21 M/mm3 (4.00-5.60); RDW 12.5 % (11.9-15.9); WHITE BLOOD COUNT 5.4 K/mm3 (4.0-10.0)
[2024-05-31 09:24] LABS: POTASSIUM 4.6 mmol/L (3.5-5.1)
[2024-05-31 09:29] LABS: ALBUMIN 3.1 g/dl (3.4-5.0); BLOOD UREA NITROGEN 12.6 mg/dL (7-18); CALCIUM 9.1 mg/dL (8.5-10.1)
[2024-05-31 09:32] LABS: CREATININE 0.9 mg/dL (0.55-1.3)
[2024-05-31 09:33] LABS: BILIRUBIN,TOTAL 0.6 mg/dL (0.2-1); TOT PROT 6.9 g/dl (6.4-8.2)
[2024-06-01] MEDS: LOSARTAN POTASSIUM 25 MG TABLET PO SCH (14:17)
[2024-06-01] MEDS: DALBAVANCIN HCL 1,500 MG in DEXTROSE 5%-WATER - 500 ML IVPB ONE (17:11)
[2024-06-01 18:46] VITALS: BP 144/95; PULSE 81; TEMP 98.2
== END 2024-06-01 20:07 | disposition home or self-care (01) | DRG 314 ==
LOC: JER 18:27 → JERBED 21:44 → J5S 05-24 02:37
PROVIDERS: ADMIT Internal Medicine
PROC: 0Y6T0Z0 Detachment at Right 3rd Toe, Complete, Open Approach (ICD-10-PCS; principal; 2024-05-28 15:00)
DX: E11.69 Type 2 diabetes mellitus with other specified complication (principal); I96 Gangrene, not elsewhere classified; E11.40 Type 2 diabetes mellitus with diabetic neuropathy, unspecified; E11.52 Type 2 diabetes mellitus with diabetic peripheral angiopathy with gangrene; L97.519 Non-pressure chronic ulcer of other part of right foot with unspecified severity; M86.9 Osteomyelitis, unspecified; E11.621 Type 2 diabetes mellitus with foot ulcer
CPT/HCPCS: 36415; 73590-TC-RT-FY; 73610-TC-RT-FY; 73630-TC-RT-FY; 73700-TC-RT; 73718-TC-RT; 80048; 80053; 80061; 82962; 83036; 83735; 84100; 85025; 85027; 85610; 85651; 85730; 86140; 86850; 86900; 86901; 87070; 87081; 87205; 88305-TC; 88311-TC; 93005; 93010; 93922; 93926-TC; 94760; 97116-GP; 97161-GP; 99285-25; G0480; J0131; J0875

== ENCOUNTER 2024-06-08 11:28 | Day surgery (SDC) | payer OTHER ==
[2024-06-08] MEDS: DALBAVANCIN HCL 1,500 MG in DEXTROSE 5%-WATER - 500 ML IVPB ONE (12:15)
[2024-06-08 14:10] VITALS: BP 155/92; PULSE 100; RESP 18; TEMP 97.7
== END 2024-06-08 13:45 | disposition home or self-care (01) ==
LOC: FINFUSION 11:28 → FM/S 11:30 → FINFUSION 13:45
PROVIDERS: ATTEND Internal Medicine
DX: M86.8X7 Other osteomyelitis, ankle and foot (principal)
CPT/HCPCS: 96365; 96366; J0875